=== PATIENT | female | born 1950 | race Caucasian/White ===

== ENCOUNTER 2020-10-24 17:44 | Inpatient (IN) ==
--- NOTE | 2020-10-24 18:16 | Emergency Department Note ---
SOB HPI General Chief Complaint: Shortness of Breath/Dyspnea Stated Complaint: SOB Time Seen by Provider: 10/24/20 18:02 Source: patient Mode of arrival: ambulatory Limitations: no limitations History of Present Illness HPI Narrative: 70 yo female presents with c/o shortness of breath since march of this year. associated with cough, no fever/chills, no chest pain. no n/v/d. no headache or bodyaches. nonsmoker, no hx heart or lung disease. has hypertension and hyperlipidemia. Has not been vaccinated against COVID 19. Cough was worse today. Patient arrived by private vehicle on arrival oxygen saturation was 72% on room air. Related Data Home Medications Medication Instructions Recorded Confirmed [id number] 1 - 2 tab PO Q6-8HP PRN 04/06/15 10/24/20 [Esgic 50-325-40 mg Tablet] lorazepam 0.5 mg PO BIDP PRN 04/06/15 10/24/20 clonidine HCl 0.1 mg PO QAM 10/24/20 10/24/20 clonidine HCl 0.1 mg PO QDAY 10/24/20 10/24/20 lisinopril 20 mg PO QAM 10/24/20 10/24/20 losartan 50 mg PO QAM 10/24/20 10/24/20 methocarbamol 750 mg PO QDAY PRN 10/24/20 10/24/20 omeprazole 20 mg PO QAM 10/24/20 10/24/20 simvastatin 20 mg PO HS 10/24/20 10/24/20 zolpidem 10 mg PO QDAY 10/24/20 10/24/20 Previous Rx's Medication Instructions Recorded hydrocodone-acetaminophen 1 - 2 tab PO Q4HP PRN #90 tablet 05/25/15 Allergies Allergy/AdvReac Type Severity Reaction Status Date / Time morphine Allergy Mild Vomiting Verified 04/06/15 15:11 Review of Systems ROS ROS Narrative: Narrative: All systems ED: reviewed and negative except as stated. Constitutional: Denies fever, chills and sweats Eyes: Denies vision change ENT ED: Denies throat pain and congestion Cardiovascular: Denies chest pain Respiratory: Reports shortness of breath and cough Gastrointestinal: Denies abdominal pain, vomiting and diarrhea Musculoskeletal: Denies back pain and joint pain Integumentary: Denies rash Neurological: Denies headache and dizziness Psychiatric: Denies anxiety, suicidal thoughts and homicidal thoughts Endocrine: Denies polydipsia and polyuria Hematological/Lymphatic: Denies easy bleeding and easy bruising PFS Narrative Patient History Narrative: hypertension, hyperlipidemia Medical/Surgical/Family History All Active Problems (Updated 10/24/20 @ 20:14 by Faisal Ennis MD) Pneumonia due to 2019-nCoV (Acute) Hypoxemia (Acute) Social History Smoking Status: Never smoker Exam Narrative Narrative: Narrative: General Limitations: no limitations General appearance: Present alert and other (obese, tachypneic) Head Head: Present atraumatic and normocephalic Eye Eye: Present PERRL and EOMI ENT ENT: Present normal oropharynx Neck Neck: Absent meningismus and lymphadenopathy Respiratory Respiratory: Present respiratory distress (Tachypneic) and decreased breath sounds Cardiovascular Cardiovascular: Present regular rate and normal rhythm Adbominal Abdominal: Present soft; Absent distention, tenderness, guarding and rebound Extremities Extremities: Present full ROM and normal capillary refill; Absent tenderness Back Back: Absent tenderness Neurological Neurological: Present alert, oriented X3 and CN II-XII intact; Absent motor sensory deficit Psychiatric Psychiatric: Present normal affect and normal mood; Absent homicidal ideation and suicidal ideation Skin Skin: Present warm (WNL) and dry; Absent rash Course Consultations Consultation #1: Case discussed with hospitalist, Dr. Morales states as the patient is requiring high flow 10 L oxygen oxy mask he does not have a critical care bed available and recommends transfer to an outside facility that has available critical care beds. Time: 21:20 Consultation #2: Case discussed with hospitalist Dr. Morales who agrees to admit patient who is now on 3.5 L nasal cannula. Time: 05:08 Vital Signs Vital signs: Vital Signs Temperature 98.9 F 10/24/20 17:45 Pulse Rate 97 H 10/24/20 17:45 Respiratory Rate 21 10/24/20 17:45 Blood Pressure 161/65 10/24/20 17:45 Pulse Oximetry (%) 72 L 10/24/20 17:45 Temperature 98.9 F 10/24/20 17:45 Pulse Rate 73 10/25/20 05:01 Respiratory Rate 19 10/25/20 05:01 Blood Pressure 139/63 10/25/20 05:01 Pulse Oximetry (%) 93 10/25/20 05:01 MDM MDM Narrative Medical decision making narrative: 70-year-old female presents with chief complaint of shortness of breath she states since March of this year but it's been worse recently with coughing. Patient has bilateral infiltrates on chest x-ray oxygen saturation was in the 70s on room air. on arrival Improved on supplemental oxygen. COVID-19 swab is positive. Patient is normal CBC CMP notable for BUN 29 creatinine 1.3 glucose 111. Troponin and proBNP negative. Patient has been requiring 10 L of oxygen here since arrival and case discussed with hospitalist Dr. Morales who states he does not have a critical care bed available and recommends transferring to outside facility unless he patient can be titrated to a lower level of oxygen. Differential Diagnosis Differential Diagnosis: chf, anemia, covid 19, pneumonia, pulm embolus Lab Data Result diagrams: 10/24/20 18:19 10/24/20 18:19 Labs: Lab Results 10/24/20 10/24/20 10/24/20 Range/Units 18:19 18:19 18:19 WBC 4.2 L (4.5-11.0) K/mcL RBC 3.90 (3.59-5.38) M/mcL Hgb 12.0 (11.2-15.7) g/dL Hct 36.8 (34.1-44.9) % MCV 94.4 (80.0-100.0) fL MCH 30.8 (26.0-34.0) pg MCHC 32.6 (31.0-36.0) g/dL RDW 14.2 (11.5-14.5) % Plt Count 166 (140-440) K/mcL MPV 11.0 H (7.4-10.4) fL Seg Neutrophils % 76 (38-78) % Band Neutrophils % 13 H (0-10) % Lymphocytes % 3 L (15-49) % Monocytes % (Manual) 8 (1-12) % Platelet Estimate Normal (Normal) RBC Morphology Normal (Normal) PT 13.8 (11.9-14.5) sec INR 1.0 (0.9-1.1) APTT 32.4 (20.0-37.0) sec Sodium 133 (133-145) mmol/L Potassium 4.5 (3.3-5.1) mmol/L Chloride 93 L (96-108) mmol/L Carbon Dioxide 22 (22-30) mmol/L Anion Gap 18.0 H (8.0-16.0) BUN 29 H (8-23) mg/dL Creatinine 1.3 H (0.6-1.1) mg/dL GFR Calculation 42 Glucose 111 H (70-105) mg/dL Calcium 8.6 (8.6-10.4) mg/dL Total Bilirubin 0.4 (0.1-1.0) mg/dL AST 99 H (<32) U/L ALT 46 H (<40) U/L Alkaline Phosphatase 85 (39-117) U/L Troponin T (<0.03) ng/mL NT-Pro-B Natriuret Pep 117.8 (<125.0) pg/mL Total Protein 7.0 (5.9-8.4) gm/dL Albumin 3.7 (3.2-5.2) gm/dL Globulin 3.3 (2.2-3.7) gm/dL Albumin/Globulin Ratio 1.1 (1.0-2.3) // Range/Units 18:19 WBC (4.5-11.0) K/mcL RBC (3.59-5.38) M/mcL Hgb (11.2-15.7) g/dL Hct (34.1-44.9) % MCV (80.0-100.0) fL MCH (26.0-34.0) pg MCHC (31.0-36.0) g/dL RDW (11.5-14.5) % Plt Count (140-440) K/mcL MPV (7.4-10.4) fL Seg Neutrophils % (38-78) % Band Neutrophils % (0-10) % Lymphocytes % (15-49) % Monocytes % (Manual) (1-12) % Platelet Estimate (Normal) RBC Morphology (Normal) PT (11.9-14.5) sec INR (0.9-1.1) APTT (20.0-37.0) sec Sodium (133-145) mmol/L Potassium (3.3-5.1) mmol/L Chloride (96-108) mmol/L Carbon Dioxide (22-30) mmol/L Anion Gap (8.0-16.0) BUN (8-23) mg/dL Creatinine (0.6-1.1) mg/dL GFR Calculation Glucose (70-105) mg/dL Calcium (8.6-10.4) mg/dL Total Bilirubin (0.1-1.0) mg/dL AST (<32) U/L ALT (<40) U/L Alkaline Phosphatase (39-117) U/L Troponin T < 0.01 (<0.03) ng/mL NT-Pro-B Natriuret Pep (<125.0) pg/mL Total Protein (5.9-8.4) gm/dL Albumin (3.2-5.2) gm/dL Globulin (2.2-3.7) gm/dL Albumin/Globulin Ratio (1.0-2.3) ED POC Tests ED POC Tests: TOMEKA - SARS Antigen Positive EKG Data EKG #1: EKG attestation: Yes I reviewed and interpreted this EKG. and Yes There are no EKG findings of acute coronary syndrome EKG results narrative: performed 1810 nsr, rate 95, normal axis, no ectopy, normal ST segments. Discharge Plan Patient/Caregiver Discharge Instructions Pt seen by MACHINE ATTENDANT/PA only: No Clinical Impression: Pneumonia due to 2019-nCoV, Hypoxemia Patient Disposition: Xfer As Inpt ([facility]) Condition: Serious Follow up with: Negra Cabrera ARNP [Primary Care Provider] - Prescriptions: No Action [id number]-[id number]-[id number] [Esgic] 1 EACH tablet 1 - 2 tab PO Q6-8HP PRN (Reason: Migraine Headache) RF: 0 lorazepam 0.5 MG tablet 0.5 mg PO BIDP PRN (Reason: Anxiety) RF: 0 hydrocodone-acetaminophen 1 TAB tablet 1 - 2 tab PO Q4HP PRN (Reason: Pain) Qty: 90 RF: 0 clonidine HCl 0.1 mg tablet 0.1 mg PO QAM RF: 0 clonidine HCl 0.1 mg tablet 0.1 mg PO QDAY RF: 0 lisinopril 20 mg tablet 20 mg PO QAM RF: 0 losartan 50 mg tablet 50 mg PO QAM RF: 0 methocarbamol 750 mg tablet 750 mg PO QDAY PRN (Reason: Pain) RF: 0 omeprazole 20 mg capsule,delayed release(DR/EC) 20 mg PO QAM RF: 0 simvastatin 20 mg tablet 20 mg PO HS RF: 0 zolpidem 10 mg tablet 10 mg PO QDAY RF: 0
[2020-10-24 19:12] LABS: Hematocrit 36.8 % (34.1-44.9); Mean Cell Volume 94.4 fL (80.0-100.0); Mean Corpuscular HGB Conc 32.6 g/dL (31.0-36.0); Platelet Count 166 K/mcL (140-440); Red Cell Distribution Width 14.2 % (11.5-14.5); WBC 4.2 K/mcL (4.5-11.0)
[2020-10-24 19:30] LABS: Partial Thromboplastin Time 32.4 sec (20.0-37.0); Prothrombin Time 13.8 sec (11.9-14.5)
[2020-10-24 19:48] LABS: Band Neutrophils % 13 % (0-10); Lymphocytes % 3 % (15-49); Monocytes % (Manual) 8 % (1-12); Platelet Estimate NORMAL (Normal); RBC Morphology NORMAL (Normal); Segmented Neutrophils % 76 % (38-78)
[2020-10-24 19:55] LABS: proBNP 117.8 pg/mL (<125.0)
[2020-10-24 19:56] LABS: ALT/SGPT 46 U/L (<40); AST/SGOT 99 U/L (<32); Albumin 3.7 gm/dL (3.2-5.2); Albumin/Globulin Ratio 1.1 (1.0-2.3); Alkaline Phosphatase 85 U/L (39-117); Bilirubin,Total 0.4 mg/dL (0.1-1.0); Blood Urea Nitrogen 29 mg/dL (8-23); Calcium 8.6 mg/dL (8.6-10.4); Carbon Dioxide 22 mmol/L (22-30); Chloride 93 mmol/L (96-108); Globulin 3.3 gm/dL (2.2-3.7); Glomerular Filtration Rate 42; Glucose 111 mg/dL (70-105)
--- NOTE | 2020-10-24 20:20 | XRay Report ---
HISTORY: Dyspnea FINDINGS: There are moderate bilateral alveolar infiltrates predominantly involving the lower lobes, left worse than right. There is also involvement extending to the upper dangelo. Right diaphragm is moderately elevated. No pleural effusion is present. The heart size is normal. No prior study is available for comparison. IMPRESSION: Moderate bilateral pneumonia Interpreted and Authenticated by: Migel Henderson 10/24/20
[2020-10-24] MEDS ORDERED: DEXAMETHASONE 10 MG/ML VIAL IV ONE (22:00)
[2020-10-25] MEDS ORDERED: REMDESIVIR 200 MG in 0.9 % SODIUM CHLORIDE 250 ML IV ONE (01:39)
--- NOTE | 2020-10-25 08:20 | Emergency Department Note ---
ED Note Addendum Note Addendum: I was asked to assess the patient at 820 in the morning as she had significant oxygen desaturation after going to the bathroom. I evaluated her in person. She is sitting upright in bed in no respiratory distress with a simple mask on. Her oxygen saturation is 85 to 88% and she is able to speak in full sentences without difficulty. I explained to staff that the sats are generally acceptable for patient being treated for Covid but I did recommend they attempt rolling the patient on her side or even assisting her in proning. They will contact the hospitalist for further recommendations.
[2020-10-25] MEDS ORDERED: LORazepam 0.5 MG TABLET PO PRN (10:21)
[2020-10-25] MEDS ORDERED: METHOCARBAMOL 750 MG TABLET PO PRN (10:21)
[2020-10-25] MEDS ORDERED: BUTALB/ACETAMINOPHEN/CAFFEINE 1 TABLET PO PRN (10:21)
--- NOTE | 2020-10-25 10:21 | Internal Med History&Physical ---
HPI History of Present Illness Patient information: Note initiated : 10/25/20 at 10:09 am Service Date, if different from initiated Date: [] Patient: Tammy Blevins a 70 y/o F admitted on for Shortness of breath. Chief Complaint: [] History of present illness: Ms. Blevins is a 70 year old F Patient presents the ED with vague complaints of just feeling ill. She has a chronic cough since March and was told it is probably allergies but has not improved. The cough has not changed. She is also chronically short of breath but she says her shortness of breath has not changed either. The only that change recently that a week ago she started feeling ill and ill and think she could tell me after asking multiple questions was made that she just kind of weak and tired fatigued but no specifics. When you see her primary care provider. She came in last night because she just has not felt any better. Patient not vaccinated. In the ED on arrival she was low 70s oxygen. Chest x-ray with bilateral infiltrates. She had a leukopenia but a mild bandemia and low lymphocytes. She was originally put on 10 L oxygen mask but was able to be titrated down to 3.5 and maintained in the ED. Creatinine is 1.3 but do not know baseline. Mild transaminitis. INR was normal Review of Systems: Pertinent positives as above. Denies headache/fever/chills/nausea/vomiting/chest or abdominal pain/diarrhea. Remaining 10 point review of system reviewed negative PFSH PFSH All Active Problems (Updated 10/24/20 @ 20:14 by Faisal Ennis MD) Pneumonia due to 2019-nCoV (Acute) Hypoxemia (Acute) MEDS/ALLERGIES Home Medications and Allergies Home Medications Medication Instructions Recorded Confirmed Type [id number]-sizsfbujdzwze-cfpc 1 - 2 tab PO Q6-8HP PRN 04/06/15 10/24/20 History [Esgic 50-325-40 mg Tablet] lorazepam 0.5 mg PO BIDP PRN 04/06/15 10/24/20 History hydrocodone-acetaminophen 1 - 2 tab PO Q4HP PRN #90 tablet 05/25/15 10/24/20 Rx clonidine HCl 0.1 mg PO QAM 10/24/20 10/24/20 History clonidine HCl 0.1 mg PO QDAY 10/24/20 10/24/20 History lisinopril 20 mg PO QAM 10/24/20 10/24/20 History losartan 50 mg PO QAM 10/24/20 10/24/20 History methocarbamol 750 mg PO QDAY PRN 10/24/20 10/24/20 History omeprazole 20 mg PO QAM 10/24/20 10/24/20 History simvastatin 20 mg PO HS 10/24/20 10/24/20 History zolpidem 10 mg PO QDAY 10/24/20 10/24/20 History Allergies Allergy/AdvReac Type Severity Reaction Status Date / Time morphine Allergy Mild Vomiting Verified 04/06/15 15:11 EXAM Constitutional Vitals: Temp Pulse Resp BP Pulse Ox 98.9 F 78 23 H 132/64 93 10/24/20 17:45 10/25/20 09:01 10/25/20 09:01 10/25/20 09:01 10/25/20 09:01 Exam: General: Alert, Awake, No acute Distress, obese Eyes/N/T: EOMI, PERRL, Head/Neck: neck supple, normocephalic atraumatic CV: RRR, No murmurs, normal s1/s2 Pulm: Mild rhonchi/rales b/l, no wheezing Abd: soft, nontender, +BS x4 Ext: no clubbing/cyanosis/edema Neuro: Alert, no focal deficits, moves all extremities, CN 2-12 grossly intact, symmetrical strength b/l upper/lower, sensations intact b/l upper/lower Skin: warm/dry DATA Data Completed and Pending Labs: Labs from last 24 hours 10/24/20 10/24/20 10/24/20 18:19 18:19 18:19 WBC RBC Hgb Hct MCV MCH MCHC RDW Plt Count MPV Seg Neutrophils % Band Neutrophils % Lymphocytes % Monocytes % (Manual) Platelet Estimate RBC Morphology PT 13.8 INR 1.0 APTT 32.4 Sodium 133 Potassium 4.5 Chloride 93 L Carbon Dioxide 22 Anion Gap 18.0 H BUN 29 H Creatinine 1.3 H GFR Calculation 42 Glucose 111 H Calcium 8.6 Total Bilirubin 0.4 AST 99 H ALT 46 H Alkaline Phosphatase 85 Troponin T < 0.01 NT-Pro-B Natriuret Pep 117.8 Total Protein 7.0 Albumin 3.7 Globulin 3.3 Albumin/Globulin Ratio 1.1 10/24/20 18:19 WBC 4.2 L RBC 3.90 Hgb 12.0 Hct 36.8 MCV 94.4 MCH 30.8 MCHC 32.6 RDW 14.2 Plt Count 166 MPV 11.0 H Seg Neutrophils % 76 Band Neutrophils % 13 H Lymphocytes % 3 L Monocytes % (Manual) 8 Platelet Estimate Normal RBC Morphology Normal PT INR APTT Sodium Potassium Chloride Carbon Dioxide Anion Gap BUN Creatinine GFR Calculation Glucose Calcium Total Bilirubin AST ALT Alkaline Phosphatase Troponin T NT-Pro-B Natriuret Pep Total Protein Albumin Globulin Albumin/Globulin Ratio A/P Narrative A/P Narrative: A: *Covid pneumonia w/ : *Acute hypoxic respiratory failure: *?RENATE on CKD III: cr 1.3, unknown baseline, if acute likely from hypoxia *HTN/HLD: On ACEI/ARB/clonidine *Migraines: *Obesity: *Anxiety: Situational, at work *Chronic cough/dyspnea: *GERD: * P: -Remdesivir/dexamethasone -O2 support and wean as able -Check ABG -Proning and mobilization daily -IS/Acapella, prn IH's, RT -Check CRP/PCT/rvp -clarify home meds -consider d/c ACEI/ARB given chronic cough - -ppx: Lovenox bid/home PPI DNR Time Spent With Patient Time: Total time spent is greater than 50% in coordination of care (as documented) at patient's floor/unit and/or counseling patient:
[2020-10-25] MEDS ORDERED: PROCHLORPERAZINE 10 MG/2 ML VIAL IV PRN (10:22)
[2020-10-25] MEDS ORDERED: ACETAMINOPHEN 325 MG TABLET PO PRN (10:22)
[2020-10-25] MEDS ORDERED: POTASSIUM CHLORIDE 40 MEQ in DEXTROSE 5% IN WATER 500 ML IV PRN (10:22)
[2020-10-25] MEDS ORDERED: ONDANSETRON 4 MG/2 ML VIAL IV PRN (10:22)
[2020-10-25] MEDS ORDERED: POTASSIUM CHLORIDE 20 MEQ TABLET PO PRN ×2 (10:22)
[2020-10-25] MEDS ORDERED: POLYETHYLENE GLYCOL 3350 17 GM PACKET PO PRN (10:22)
[2020-10-25] MEDS ORDERED: MAGNESIUM SULFATE 2 GM/50 ML BAG IV PRN (10:22)
[2020-10-25] MEDS ORDERED: IPRATROPIUM/ALBUTEROL 3 ML AMPUL.NEB NEB PRN (10:22)
[2020-10-25] MEDS ORDERED: SENNOSIDES 1 TABLET PO PRN (10:22)
[2020-10-25 11:46] LABS: Hematocrit 37.6 % (34.1-44.9); Hemoglobin 12.5 g/dL (11.2-15.7); Mean Cell Volume 94.9 fL (80.0-100.0); Mean Corpuscular HGB Conc 33.2 g/dL (31.0-36.0); Mean Platelet Volume 11.2 fL (7.4-10.4); Platelet Count 176 K/mcL (140-440); RBC 3.96 M/mcL (3.59-5.38); Red Cell Distribution Width 14.3 % (11.5-14.5); WBC 4.3 K/mcL (4.5-11.0)
[2020-10-25 11:58] LABS: ALT/SGPT 51 U/L (<40); AST/SGOT 93 U/L (<32); Albumin 3.8 gm/dL (3.2-5.2); Albumin/Globulin Ratio 1.2 (1.0-2.3); Alkaline Phosphatase 91 U/L (39-117); Bilirubin,Direct < 0.2 mg/dL (0-0.3); Bilirubin,Total 0.3 mg/dL (0.1-1.0); Blood Urea Nitrogen 32 mg/dL (8-23); Calcium 8.9 mg/dL (8.6-10.4); Carbon Dioxide 26 mmol/L (22-30); Chloride 96 mmol/L (96-108); Globulin 3.2 gm/dL (2.2-3.7); Glomerular Filtration Rate 42; Glucose 122 mg/dL (70-105); Lactate Dehydrogenase 621 U/L (135-225); Phosphorous 3.2 mg/dL (2.5-4.5); Triglycerides 119 mg/dL (<150); Uric Acid 9.1 mg/dL (2.5-8.0)
[2020-10-25 12:14] LABS: Band Neutrophils % 7 % (0-10); Lymphocytes % 7 % (15-49); Monocytes % (Manual) 5 % (1-12); Platelet Estimate NORMAL (Normal); RBC Morphology NORMAL (Normal); Segmented Neutrophils % 81 % (38-78)
[2020-10-25] MEDS ORDERED: PNEUMOCOCCAL 23-VAL P-SAC VAC 0.5 ML SYRINGE IM ONE (12:45)
[2020-10-25] MEDS: 0.9 % SODIUM CHLORIDE 10 ML SYRINGE IV SCH ×2 (13:59→20:36)
[2020-10-25] MEDS ORDERED: cloNIDine HCL 0.1 MG TABLET PO PRN ×2 (14:56→14:57)
[2020-10-25] MEDS: IPRATROPIUM/ALBUTEROL SULFATE 1 PUFF INHALER INH SCH ×2 (17:24→20:35)
[2020-10-25] MEDS: HYDROcodone/APAP 10/325MG TABLET PO PRN (17:25)
[2020-10-25] MEDS: DOCUSATE SODIUM 100 MG CAPSULE PO SCH (20:25)
[2020-10-25] MEDS: ENOXAPARIN 40 MG/0.4 ML SYRINGE SQ SCH (20:35)
[2020-10-25] MEDS ORDERED: SIMVASTATIN 20 MG TABLET PO SCH (21:00)
[2020-10-25] MEDS ORDERED: ZOLPIDEM 5 MG TABLET PO PRN (21:00)
[2020-10-26] MEDS: HYDROcodone/APAP 10/325MG TABLET PO PRN ×2 (01:51→19:36)
[2020-10-26] MEDS: 0.9 % SODIUM CHLORIDE 10 ML SYRINGE IV SCH ×3 (05:43→20:07)
[2020-10-26 07:28] LABS: Hematocrit 39.4 % (34.1-44.9); Hemoglobin 11.9 g/dL (11.2-15.7); Mean Cell Volume 101.3 fL (80.0-100.0); Mean Corpuscular HGB Conc 30.2 g/dL (31.0-36.0); Mean Platelet Volume 11.1 fL (7.4-10.4); Platelet Count 191 K/mcL (140-440); RBC 3.89 M/mcL (3.59-5.38); Red Cell Distribution Width 14.5 % (11.5-14.5); WBC 6.1 K/mcL (4.5-11.0)
[2020-10-26] MEDS: DOCUSATE SODIUM 100 MG CAPSULE PO SCH ×2 (08:09→20:07)
--- NOTE | 2020-10-26 08:14 | Internal Med Progress Note ---
SUBJECTIVE Subjective Patient information: Note initiated : 10/26/20 at 8:12 am Service Date, if different from initiated Date: [] Patient: Tammy Blevins 70 y/o F admitted on 10/25/20 for Shortness of breath. Chief Complaint: [] Interval history: History of present illness: Ms. Blevins is a 70 year old F Patient presents the ED with vague complaints of just feeling ill. She has a chronic cough since March and was told it is probably allergies but has not improved. The cough has not changed. She is also chronically short of breath but she says her shortness of breath has not changed either. The only that change recently that a week ago she started feeling ill and ill and think she could tell me after asking multiple questions was made that she just kind of weak and tired fatigued but no specifics. When you see her primary care provider. She came in last night because she just has not felt any better. Patient not vaccinated. In the ED on arrival she was low 70s oxygen. Chest x-ray with bilateral infiltrates. She had a leukopenia but a mild bandemia and low lymphocytes. She was originally put on 10 L oxygen mask but was able to be titrated down to 3.5 and maintained in the ED. Creatinine is 1.3 but do not know baseline. Mild transaminitis. INR was normal pt was on lisinopril but this was stopped because of chronic cough and she was switched to Losartan. Pt with diarrhea multiple episodes in ED. c. diff pending. 10/26 Patient C. difficile positive. States she does not feel any better than yesterday. Is on Vapotherm. Has cough and shortness of breath. And diarrhea. Review of Systems: denies headache/fever/chills/nausea/vomiting/chest or abdominal pain. Otherwise see above. Constitutional Vitals: Vital Signs Temp Pulse Resp BP Pulse Ox 98.4 F 78 25 H 128/69 95 10/26/20 04:02 10/26/20 04:02 10/26/20 04:02 10/26/20 04:02 10/26/20 04:02 Period Temp Pulse Resp BP Sys/Wilcox Pulse Ox Last 24 Hr 97.1 F-101.9 F 75-96 14-27 126-174/41-103 69-97 Intake and Output 10/25/20 10/26/2010/26/21 21:59 05:59 13:59 Intake Total 100 120 Output Total 151 450 Balance -51 -330 Weight 125.418 kg Intake & Output: Intake & Output 10/25/20 10/26/20 10/26/20 21:59 05:59 13:59 Intake Total 100 120 Output Total 151 450 Balance -51 -330 Weight 125.418 kg Intake: Oral 100 120 Output: Urine Catheter Amount 450 # of times incontinent of urine 1 Urine/Stool Mix 150 Other: Urine Appearance Clear Uretheral (Beasley) Clear Urine Color Bright Yellow Uretheral (Beasley) Bright Yellow Stool Size Moderate Stool Color Brown Stool Consistency Liquid Exam: General: Alert, Awake, No acute Distress, obese Eyes/N/T: EOMI, Head/Neck: neck supple, CV: RRR, No murmurs, Pulm: Mild rhonchi/rales b/l, no wheezing Abd: soft, nontender, +BS x4 Ext: no clubbing/cyanosis/edema Neuro: Alert, no focal deficits, moves all extremities, Skin: warm/dry OBJ DATA Labs CBC & Chem 7: 10/26/20 05:19 10/26/20 05:20 Labs: Abnormal Lab Results 10/26/20 10/26/20 10/25/20 05:20 05:19 10:45 WBC MCV 101.3 H MCHC 30.2 L MPV 11.1 H Seg Neutrophils % Band Neutrophils % Lymphocytes % Chloride Anion Gap BUN Creatinine Glucose Uric Acid GGT AST ALT Lactate Dehydrogenase C-Reactive Protein 8.90 H Procalcitonin 0.32 H 10/25/20 10/25/20 10/24/20 10:45 10:45 18:19 WBC 4.3 L MCV MCHC MPV 11.2 H Seg Neutrophils % 81 H Band Neutrophils % Lymphocytes % 7 L Chloride 93 L Anion Gap 18.0 H BUN 32 H 29 H Creatinine 1.3 H 1.3 H Glucose 122 H 111 H Uric Acid 9.1 H GGT 220 H AST 93 H 99 H ALT 51 H 46 H Lactate Dehydrogenase 621 H C-Reactive Protein 10.60 H Procalcitonin 10/24/20 18:19 WBC 4.2 L MCV MCHC MPV 11.0 H Seg Neutrophils % Band Neutrophils % 13 H Lymphocytes % 3 L Chloride Anion Gap BUN Creatinine Glucose Uric Acid GGT AST ALT Lactate Dehydrogenase C-Reactive Protein Procalcitonin Meds: Medications Acetaminophen (Acetaminophen 325 Mg Tablet) 650 mg PO Q6HP PRN PRN Reason: PAIN/FEVER > 101 Last Admin: 10/26/20 01:52 Dose: 650 mg Documented by: Acetaminophen/Butalbital/Caffeine (Butalb/Acetaminophen/Caffeine 1 Tablet) 1 - 2 tab PO Q6-8HP PRN PRN Reason: Migraine Headache Hydrocodone Bitart/Acetaminophen (Hydrocodone/Apap 10/325mg Tablet) 1 - 2 tab PO Q4HP PRN; Protocol PRN Reason: Pain Last Admin: 10/26/20 01:51 Dose: 1 tab Documented by: Albuterol/Ipratropium (Ipratropium/Albuterol 3 Ml Ampul.Neb) 3 ml NEB Q4HP PRN PRN Reason: Shortness Of Breath Albuterol/Ipratropium (Ipratropium/Albuterol Sulfate 1 Puff Inhaler) 2 puff INH TID [facility] Last Admin: 10/25/20 20:35 Dose: 2 puff Documented by: Clonidine HCl (Clonidine Hcl 0.1 Mg Tablet) 0.1 mg PO Q8HP PRN PRN Reason: Hypertension or headache Last Admin: 10/25/20 22:16 Dose: 0.1 mg Documented by: Dexamethasone (Dexamethasone 4 Mg Tablet) 6 mg PO DAILY [facility] Docusate Sodium (Docusate Sodium 100 Mg Capsule) 100 mg PO BID [facility] Last Admin: 10/26/20 08:09 Dose: Not Given Documented by: Enoxaparin Sodium (Enoxaparin 40 Mg/0.4 Ml Syringe) 40 mg SQ BID [facility] Last Admin: 10/25/20 20:35 Dose: 40 mg Documented by: Potassium Chloride 40 meq/ (Dextrose) 520 mls @ 130 mls/hr IV UD PRN PRN Reason: Potassium < 3 Magnesium Sulfate (Magnesium Sulfate) 2 gm in 50 mls @ 50 mls/hr IV UD PRN PRN Reason: Magnesium </= 1.6 REMDESIVIR 100 mg/ Sodium (Chloride) 250 mls @ 500 mls/hr IV Q24H [facility] Stop: 10/29/20 09:29 Lorazepam (Lorazepam 0.5 Mg Tablet) 0.5 mg PO BIDP PRN PRN Reason: Anxiety Last Admin: 10/26/20 01:51 Dose: 0.5 mg Documented by: Losartan Potassium (Losartan 50 Mg Tablet) 50 mg PO QAM [facility] Methocarbamol (Methocarbamol 750 Mg Tablet) 750 mg PO QDAY PRN PRN Reason: Pain Montelukast Sodium (Montelukast 10 Mg Tablet) 10 mg PO QDAY [facility] Omeprazole (Omeprazole 20 Mg Capsule) 20 mg PO QAM [facility] Ondansetron HCl (Ondansetron 4 Mg/2 Ml Vial) 4 mg IV Q4HP PRN PRN Reason: Nausea And Vomiting Polyethylene Glycol (Polyethylene Glycol 3350 17 Gm Packet) 17 gm PO DAILYP PRN PRN Reason: Constipation Potassium Chloride (Potassium Chloride 20 Meq Tablet) 40 meq PO UD PRN PRN Reason: Potssium is 3-3.5 Potassium Chloride (Potassium Chloride 20 Meq Tablet) 40 meq PO UD PRN PRN Reason: Potassium < 3 Prochlorperazine (Prochlorperazine 10 Mg/2 Ml Vial) 10 mg IV Q6HP PRN PRN Reason: Nausea And Vomiting Senna (Sennosides 1 Tablet) 2 tab PO DAILYP PRN PRN Reason: Constipation Simvastatin (Simvastatin 20 Mg Tablet) 20 mg PO HS [facility] Last Admin: 10/25/20 20:35 Dose: 20 mg Documented by: Sodium Chloride (0.9 % Sodium Chloride 10 Ml Syringe) 10 ml IV Q8 [facility] Last Admin: 10/26/20 05:43 Dose: 10 ml Documented by: Zolpidem Tartrate (Zolpidem 5 Mg Tablet) 5 - 10 mg PO HSP PRN PRN Reason: Insomnia Last Admin: 10/25/20 20:48 Dose: 5 mg Documented by: A/P Narrative A/P Narrative: A: *Covid pneumonia w/ARDS, : -febrile last night *Acute hypoxic respiratory failure: -on vapotherm *C. Diff colitis on admit: *?RENATE on CKD III: cr 1.3, unknown baseline, if acute likely from hypoxia *HTN/HLD: recently switched from Lisinopril to losartan for chronic cough *Migraines: is on prn clonidine & fioricet *Obesity: *Anxiety: Situational, at work *Chronic cough/dyspnea: recently switched from Lisinopril to losartan for chronic cough & started ppi *GERD: P: -Remdesivir/dexamethasone -O2 support and wean as able -Proning and mobilization daily, OOB to chair -IS/Acapella, prn IH's, RT -Vanco PO -cont ARB -restart aldactone - -ppx: Lovenox bid/home PPI DNR Time Spent With Patient Time: Total time spent is greater than 50% in coordination of care (as documented) at patient's floor/unit and/or counseling patient:
[2020-10-26] MEDS: ENOXAPARIN 40 MG/0.4 ML SYRINGE SQ SCH ×2 (08:18→20:06)
[2020-10-26 08:38] LABS: ALT/SGPT 44 U/L (<40); AST/SGOT 74 U/L (<32); Albumin 3.1 gm/dL (3.2-5.2); Albumin/Globulin Ratio 0.9 (1.0-2.3); Alkaline Phosphatase 78 U/L (39-117); Bilirubin,Direct < 0.2 mg/dL (0-0.3); Bilirubin,Total 0.3 mg/dL (0.1-1.0); Blood Urea Nitrogen 40 mg/dL (8-23); Calcium 8.9 mg/dL (8.6-10.4); Carbon Dioxide 18 mmol/L (22-30); Chloride 99 mmol/L (96-108); Globulin 3.3 gm/dL (2.2-3.7); Glomerular Filtration Rate 42; Glucose 103 mg/dL (70-105); Lactate Dehydrogenase 723 U/L (135-225); Phosphorous 2.9 mg/dL (2.5-4.5); Triglycerides 99 mg/dL (<150); Uric Acid 9.1 mg/dL (2.5-8.0)
[2020-10-26] MEDS ORDERED: LOSARTAN 50 MG TABLET PO SCH (09:00)
[2020-10-26] MEDS ORDERED: DEXAMETHASONE 4 MG TABLET PO SCH (09:00)
[2020-10-26] MEDS ORDERED: MONTELUKAST 10 MG TABLET PO SCH (09:00)
[2020-10-26] MEDS ORDERED: cloNIDine HCL 0.1 MG TABLET PO SCH ×2 (09:00)
[2020-10-26] MEDS ORDERED: OMEPRAZOLE 20 MG CAPSULE PO SCH (09:00)
[2020-10-26] MEDS ORDERED: REMDESIVIR 100 MG in 0.9 % SODIUM CHLORIDE 250 ML IV SCH (09:00)
--- NOTE | 2020-10-26 09:45 | XRay Report ---
CLINICAL INFORMATION: worsening hypoxia COMPARISON: 10/24/2020 FINDINGS: Heart size, mediastinum and pulmonary vessels are normal. Moderate patchy infiltrates in both mid and lower lungs worsened modestly from previous exam. No definite effusion IMPRESSION: Moderate patchy bilateral mid and lower lung infiltrates worsening modestly since chest x-ray two days ago Interpreted and Authenticated by: Andrew Bullock 10/26/20
[2020-10-26] MEDS ORDERED: SPIRONOLACTONE 25 MG TABLET PO SCH (10:55)
[2020-10-26 10:56] LABS: Band Neutrophils % 6 % (0-10); Lymphocytes % 3 % (15-49); Monocytes % (Manual) 3 % (1-12); Platelet Estimate NORMAL (Normal); RBC Morphology NORMAL (Normal); Segmented Neutrophils % 88 % (38-78)
[2020-10-26] MEDS: IPRATROPIUM/ALBUTEROL SULFATE 1 PUFF INHALER INH SCH ×3 (11:57→20:10)
[2020-10-26] MEDS ORDERED: VANCOMYCIN ORAL SOL 1,000 MG/10 ML BOTTLE PO SCH (12:00)
[2020-10-26] MEDS ORDERED: cloNIDine HCL 0.1 MG TABLET PO PRN (12:01)
[2020-10-26] MEDS ORDERED: MAGNESIUM SULFATE 2 GM/50 ML BAG IV PRN (12:01)
[2020-10-26] MEDS ORDERED: BUTALB/ACETAMINOPHEN/CAFFEINE 1 TABLET PO PRN (12:01)
[2020-10-26] MEDS ORDERED: POLYETHYLENE GLYCOL 3350 17 GM PACKET PO PRN (12:01)
[2020-10-26] MEDS ORDERED: POTASSIUM CHLORIDE 20 MEQ TABLET PO PRN ×2 (12:01)
[2020-10-26] MEDS ORDERED: ONDANSETRON 4 MG/2 ML VIAL IV PRN (12:01)
[2020-10-26] MEDS ORDERED: PROCHLORPERAZINE 10 MG/2 ML VIAL IV PRN (12:01)
[2020-10-26] MEDS ORDERED: ACETAMINOPHEN 325 MG TABLET PO PRN (12:01)
[2020-10-26] MEDS ORDERED: IPRATROPIUM/ALBUTEROL 3 ML AMPUL.NEB NEB PRN (12:01)
[2020-10-26] MEDS ORDERED: LORazepam 0.5 MG TABLET PO PRN (12:01)
[2020-10-26] MEDS ORDERED: SENNOSIDES 1 TABLET PO PRN (12:01)
[2020-10-26] MEDS ORDERED: POTASSIUM CHLORIDE 40 MEQ in DEXTROSE 5% IN WATER 500 ML IV PRN (12:01)
[2020-10-26] MEDS: guaiFENesin/DEXTROMETHORPHAN ORAL SOL PO PRN (15:49)
[2020-10-26] MEDS: METHOCARBAMOL 750 MG TABLET PO PRN (16:37)
[2020-10-26] MEDS: VANCOMYCIN ORAL SOL 1,000 MG/10 ML BOTTLE PO SCH ×2 (17:27→23:52)
[2020-10-26] MEDS: SIMVASTATIN 20 MG TABLET PO SCH (20:07)
[2020-10-26] MEDS: ZOLPIDEM 5 MG TABLET PO PRN (20:07)
[2020-10-27] MEDS: HYDROcodone/APAP 10/325MG TABLET PO PRN ×3 (01:58→20:31)
[2020-10-27] MEDS: VANCOMYCIN ORAL SOL 1,000 MG/10 ML BOTTLE PO SCH ×4 (05:44→23:40)
[2020-10-27] MEDS: 0.9 % SODIUM CHLORIDE 10 ML SYRINGE IV SCH ×3 (05:44→20:32)
[2020-10-27] MEDS: guaiFENesin/DEXTROMETHORPHAN ORAL SOL PO PRN ×2 (06:20→14:41)
[2020-10-27] MEDS: OMEPRAZOLE 20 MG CAPSULE PO SCH (06:43)
[2020-10-27 07:12] LABS: Basophils # (Auto) 0 K/mcL (0.00-0.30); Basophils % (Auto) 0 % (0.0-2.0); Eosinophils # (Auto) 0 K/mcL (0.00-0.70); Eosinophils % (Auto) 0 % (0.0-7.0); Hematocrit 35.9 % (34.1-44.9); Hemoglobin 11.7 g/dL (11.2-15.7); Lymphocytes # (Auto) 0.48 K/mcL (1.50-4.80); Lymphocytes % (Auto) 7.9 % (15.5-49.0); Mean Cell Volume 96.2 fL (80.0-100.0); Mean Corpuscular HGB Conc 32.6 g/dL (31.0-36.0); Mean Platelet Volume 11.1 fL (7.4-10.4); Monocytes # (Auto) 0.53 K/mcL (0.10-0.90); Monocytes % (Auto) 8.7 % (1.0-12.0); Neutrophils % (Auto) 83.4 % (38.0-78.0); Platelet Count 252 K/mcL (140-440); RBC 3.73 M/mcL (3.59-5.38); Red Cell Distribution Width 14.4 % (11.5-14.5); WBC 6.1 K/mcL (4.5-11.0)
[2020-10-27 07:59] LABS: ALT/SGPT 43 U/L (<40); AST/SGOT 56 U/L (<32); Albumin 3.1 gm/dL (3.2-5.2); Albumin/Globulin Ratio 0.9 (1.0-2.3); Alkaline Phosphatase 80 U/L (39-117); Bilirubin,Total 0.3 mg/dL (0.1-1.0); Blood Urea Nitrogen 42 mg/dL (8-23); Calcium 8.8 mg/dL (8.6-10.4); Carbon Dioxide 22 mmol/L (22-30); Chloride 101 mmol/L (96-108); Globulin 3.4 gm/dL (2.2-3.7); Glomerular Filtration Rate 42; Glucose 128 mg/dL (70-105)
[2020-10-27] MEDS: ENOXAPARIN 40 MG/0.4 ML SYRINGE SQ SCH ×2 (09:29→20:30)
[2020-10-27] MEDS: MONTELUKAST 10 MG TABLET PO SCH (09:29)
[2020-10-27] MEDS: REMDESIVIR 100 MG in 0.9 % SODIUM CHLORIDE 250 ML IV SCH (09:30)
[2020-10-27] MEDS: LOSARTAN 50 MG TABLET PO SCH (09:30)
[2020-10-27] MEDS: SPIRONOLACTONE 25 MG TABLET PO SCH (09:30)
[2020-10-27] MEDS: DEXAMETHASONE 4 MG TABLET PO SCH (09:30)
[2020-10-27] MEDS: IPRATROPIUM/ALBUTEROL SULFATE 1 PUFF INHALER INH SCH ×3 (09:32→20:32)
[2020-10-27] MEDS: DOCUSATE SODIUM 100 MG CAPSULE PO SCH ×2 (09:32→20:32)
[2020-10-27] MEDS: METHOCARBAMOL 750 MG TABLET PO PRN (09:50)
[2020-10-27] MEDS: LORazepam 0.5 MG TABLET PO PRN ×2 (10:42→15:44)
--- NOTE | 2020-10-27 10:53 | Internal Med Progress Note ---
SUBJECTIVE Subjective Patient information: Note initiated : 10/27/20 at 10:48 am Service Date, if different from initiated Date: [] Patient: Tammy Blevins a 70 y/o F admitted on 10/25/20 for Shortness of breath. Chief Complaint: [CoVID pneumonia] History of present illness: Ms. Blevins is a 70 year old F Patient presents the ED with vague complaints of just feeling ill. She has a chronic cough since March and was told it is probably allergies but has not improved. The cough has not changed. She is also chronically short of breath but she says her shortness of breath has not changed either. The only that change recently that a week ago she started feeling ill and ill and think she co uld tell me after asking multiple questions was made that she just kind of weak and tired fatigued but no specifics. When you see her primary care provider. She came in last night because she just has not felt any better. Patient not vaccinated. In the ED on arrival she was low 70s oxygen. Chest x-ray with bilateral infiltrates. She had a leukopenia but a mild bandemia and low lymphocytes. She was originally put on 10 L oxygen mask but was able to be titrated down to 3.5 and maintained in the ED. Creatinine is 1.3 but do not know baseline. Mild transaminitis. INR was normal pt was on lisinopril but this was stopped because of chronic cough and she was switched to Losartan. Pt with diarrhea multiple episodes in ED. c. diff pending. 10/26 Patient C. difficile positive. States she does not feel any better than yesterday. Is on Vapotherm. Has cough and shortness of breath. And diarrhea. 10/27: No diarrhea overnight. Tolerating modified proning on her side. Been on Vapotherm 60L and 95%. Afebrile overnight. c/o slightly improving SOB. c/o nonproductive cough. Denies sputum production. Denies wheezing. Denies chest pain. Denies fever or chills or sweating. Denies abdominal pain. Constitutional Vitals: Vital Signs Temp Pulse Resp BP Pulse Ox 36.0 C L 80 21 120/58 95 10/27/20 07:29 10/27/20 10:45 10/27/20 10:45 10/27/20 10:00 10/27/20 10:45 Period Temp Pulse Resp BP Sys/Wilcox Pulse Ox Last 24 Hr 35.9 C-36.3 C 69-83 17-28 105-155/45-136 86-97 Intake and Output 10/26/20 10/27/20 10/27/20 21:59 05:59 13:59 Intake Total 680 Output Total 300 225 Balance 380 -225 Weight 124.42 kg Intake & Output: Intake & Output 10/26/20 10/27/20 10/27/20 21:59 05:59 13:59 Intake Total 680 Output Total 300 225 Balance 380 -225 Weight 124.42 kg Intake: Nourishment/Supplement quantity 240 (ml) Oral 440 Output: Urine Catheter Amount 300 225 Other: Meal Dinner Percent of Meal Consumed 25% Feeding Ability Independent Nourishment/Supplement name Ensure Urine Appearance Clear Cloudy Urine Color Light Shreya Bright Yellow # Voids 1 1 General appearance: cooperative and no acute distress Exam: Prone Head Head exam: Present atraumatic and normocephalic Eye Eye exam: Present EOMI and PERRL ENT ENT exam: Present mucous membranes moist, normal exam and normal external ear exam Additional comments: Vapotherm in place Neck Neck exam: Present normal inspection; Absent lymphadenopathy, tenderness and thyromegaly Respiratory Respiratory exam: Present respiratory distress and rhonchi; Absent accessory muscle use and wheezes Cardiovascular Cardiovascular exam: Present normal rate and rhythm; Absent JVD GI/Abdominal GI/Abdominal exam: Present normal bowel sounds and soft; Absent organomegaly and tenderness Extremities Exam Extremities exam: Present full ROM, normal capillary refill and normal inspection; Absent tenderness Neurological Exam Neurological exam: Present alert, CN II-XII intact and oriented X3; Absent motor sensory deficit Psychiatric Psychiatric exam: Present normal affect and normal mood; Absent anxious and depressed Skin Skin exam: Present dry and intact OBJ DATA Labs CBC & Chem 7: 10/27/20 06:04 10/27/20 06:03 Labs: Abnormal Lab Results 10/27/20 10/27/20 10/27/20 06:04 06:04 06:03 WBC MCV MCHC MPV 11.1 H Neut % (Auto) 83.4 H Lymph % (Auto) 7.9 L Lymph # (Auto) 0.48 L Seg Neutrophils % Band Neutrophils % Lymphocytes % Chloride Carbon Dioxide Anion Gap BUN 42 H Creatinine 1.3 H Glucose 128 H Uric Acid Magnesium GGT AST 56 H ALT 43 H Lactate Dehydrogenase C-Reactive Protein 9.90 H Albumin 3.1 L Albumin/Globulin Ratio 0.9 L Procalcitonin 10/26/20 10/26/20 10/26/20 05:20 05:19 05:19 WBC MCV 101.3 H MCHC 30.2 L MPV 11.1 H Neut % (Auto) Lymph % (Auto) Lymph # (Auto) Seg Neutrophils % 88 H Band Neutrophils % Lymphocytes % 3 L Chloride Carbon Dioxide 18 L Anion Gap 19.0 H BUN 40 H Creatinine 1.3 H Glucose Uric Acid 9.1 H Magnesium 2.6 H GGT 192 H AST 74 H ALT 44 H Lactate Dehydrogenase 723 H C-Reactive Protein 8.90 H Albumin 3.1 L Albumin/Globulin Ratio 0.9 L Procalcitonin 0.31 H 10/25/20 10/25/20 10/25/20 10:45 10:45 10:45 WBC 4.3 L MCV MCHC MPV 11.2 H Neut % (Auto) Lymph % (Auto) Lymph # (Auto) Seg Neutrophils % 81 H Band Neutrophils % Lymphocytes % 7 L Chloride Carbon Dioxide Anion Gap BUN 32 H Creatinine 1.3 H Glucose 122 H Uric Acid 9.1 H Magnesium GGT 220 H AST 93 H ALT 51 H Lactate Dehydrogenase 621 H C-Reactive Protein 10.60 H Albumin Albumin/Globulin Ratio Procalcitonin 0.32 H 10/24/20 10/24/20 18:19 18:19 WBC 4.2 L MCV MCHC MPV 11.0 H Neut % (Auto) Lymph % (Auto) Lymph # (Auto) Seg Neutrophils % Band Neutrophils % 13 H Lymphocytes % 3 L Chloride 93 L Carbon Dioxide Anion Gap 18.0 H BUN 29 H Creatinine 1.3 H Glucose 111 H Uric Acid Magnesium GGT AST 99 H ALT 46 H Lactate Dehydrogenase C-Reactive Protein Albumin Albumin/Globulin Ratio Procalcitonin Meds: Medications Acetaminophen (Acetaminophen 325 Mg Tablet) 650 mg PO Q6HP PRN PRN Reason: PAIN/FEVER > 101 Acetaminophen/Butalbital/Caffeine (Butalb/Acetaminophen/Caffeine 1 Tablet) 1 - 2 tab PO Q6-8HP PRN PRN Reason: Migraine Headache Hydrocodone Bitart/Acetaminophen (Hydrocodone/Apap 10/325mg Tablet) 1 - 2 tab PO Q4HP PRN; Protocol PRN Reason: Pain Last Admin: 10/27/20 06:52 Dose: 1 tab Documented by: Albuterol/Ipratropium (Ipratropium/Albuterol Sulfate 1 Puff Inhaler) 2 puff INH TID [facility] Last Admin: 10/27/20 09:32 Dose: 2 puff Documented by: Albuterol/Ipratropium (Ipratropium/Albuterol 3 Ml Ampul.Neb) 3 ml NEB Q4HP PRN PRN Reason: Shortness Of Breath Last Admin: 10/27/20 02:31 Dose: 3 ml Documented by: Clonidine HCl (Clonidine Hcl 0.1 Mg Tablet) 0.1 mg PO Q8HP PRN PRN Reason: Hypertension or headache Dexamethasone (Dexamethasone 4 Mg Tablet) 6 mg PO DAILY [facility] Last Admin: 10/27/20 09:30 Dose: 6 mg Documented by: Docusate Sodium (Docusate Sodium 100 Mg Capsule) 100 mg PO BID [facility] Last Admin: 10/27/20 09:32 Dose: Not Given Documented by: Enoxaparin Sodium (Enoxaparin 40 Mg/0.4 Ml Syringe) 40 mg SQ BID [facility] Last Admin: 10/27/20 09:29 Dose: 40 mg Documented by: Guaifenesin (Guaifenesin/Dextromethorphan Oral Ermelinda) 10 ml PO Q4HP PRN PRN Reason: Cough Last Admin: 10/27/20 06:20 Dose: 10 ml Documented by: Potassium Chloride 40 meq/ (Dextrose) 520 mls @ 130 mls/hr IV UD PRN PRN Reason: Potassium < 3 Magnesium Sulfate (Magnesium Sulfate) 2 gm in 50 mls @ 50 mls/hr IV UD PRN PRN Reason: Magnesium </= 1.6 REMDESIVIR 100 mg/ Sodium (Chloride) 250 mls @ 500 mls/hr IV Q24H [facility] Stop: 10/29/20 09:29 Last Admin: 10/27/20 09:30 Dose: 500 mls/hr Documented by: Lorazepam (Lorazepam 0.5 Mg Tablet) 0.5 mg PO Q6HP PRN PRN Reason: Anxiety Last Admin: 10/27/20 10:42 Dose: 0.5 mg Documented by: Losartan Potassium (Losartan 50 Mg Tablet) 50 mg PO QAM [facility] Last Admin: 10/27/20 09:30 Dose: 50 mg Documented by: Methocarbamol (Methocarbamol 750 Mg Tablet) 750 mg PO DAILYP PRN PRN Reason: Pain Last Admin: 10/27/20 09:50 Dose: 750 mg Documented by: Montelukast Sodium (Montelukast 10 Mg Tablet) 10 mg PO QDAY [facility] Last Admin: 10/27/20 09:29 Dose: 10 mg Documented by: Omeprazole (Omeprazole 20 Mg Capsule) 20 mg PO ACB [facility] Last Admin: 10/27/20 06:43 Dose: 20 mg Documented by: Ondansetron HCl (Ondansetron 4 Mg/2 Ml Vial) 4 mg IV Q4HP PRN PRN Reason: Nausea And Vomiting Polyethylene Glycol (Polyethylene Glycol 3350 17 Gm Packet) 17 gm PO DAILYP PRN PRN Reason: Constipation Potassium Chloride (Potassium Chloride 20 Meq Tablet) 40 meq PO UD PRN PRN Reason: Potssium is 3-3.5 Potassium Chloride (Potassium Chloride 20 Meq Tablet) 40 meq PO UD PRN PRN Reason: Potassium < 3 Prochlorperazine (Prochlorperazine 10 Mg/2 Ml Vial) 10 mg IV Q6HP PRN PRN Reason: Nausea And Vomiting Senna (Sennosides 1 Tablet) 2 tab PO DAILYP PRN PRN Reason: Constipation Simvastatin (Simvastatin 20 Mg Tablet) 20 mg PO [facility] Last Admin: 10/26/20 20:07 Dose: 20 mg Documented by: Sodium Chloride (0.9 % Sodium Chloride 10 Ml Syringe) 10 ml IV Q8 [facility] Last Admin: 10/27/20 05:44 Dose: 10 ml Documented by: Spironolactone (Spironolactone 25 Mg Tablet) 25 mg PO QDAY [facility] Last Admin: 10/27/20 09:30 Dose: 25 mg Documented by: Vancomycin HCl (Vancomycin Oral Ermelinda 1,000 Mg/10 Ml Bottle) 125 mg PO Q6 [facility]; Protocol Last Admin: 10/27/20 05:44 Dose: 125 mg Documented by: Zolpidem Tartrate (Zolpidem 5 Mg Tablet) 5 - 10 mg PO HSP PRN PRN Reason: Insomnia Last Admin: 10/26/20 20:07 Dose: 5 mg Documented by: A/P Assessment and plan (1) Stage 1 acute kidney injury: Status: Acute (2) Pneumonia due to 2019-nCoV: Status: Acute (3) C. difficile colitis: Status: Acute (4) Hypoxemia: Status: Acute Narrative A/P Narrative: Assessment and Plans: 1. CoVID pneumonia with acute respiratory failure with hypoxia: Stays in inpatient PCU Isolation: airborne and contact ABG to decide whether patient can stay on high flow oxygen or need more oxygenation/ventilation via BiPAP/intubation Remdesivir Dexamethasone Lovenox No Lasix due to acute kidney injury cbc w/ auto diff in the morning to trend WBC Proning 16hr/day 2. C diff colitis: Vancomycin 125mg PO QID B85tule 3. Stage 1 acute kidney injury: Avoid nephrotoxic agents Saline lock CMP daily to trend kidney functions GI ppx: DVT ppx: Lovenox Code status: No chest compression; okay for intubation Prognosis: Extremely guarded Disposition: inpatient PCU Time Spent With Patient Time: Total time spent is greater than 50% in coordination of care (as documented) at patient's floor/unit and/or counseling patient: Total time spent with greater than 50% in coordination of care (as documented) at patient's floor/unit and/or counseling patient:: 25 - 35 minutes
--- NOTE | 2020-10-27 11:17 | Emergency Department Note ---
ED Note Addendum Note Addendum: I was notified that the patient may require intubation so I evaluated her in person in the ICU at 11:15 AM. She is awake and alert on nasal CPAP. She says that she has difficulty taking deep breaths but otherwise did not feel short of breath at this time. She is able to converse in short sentences with minimally increased work of breathing after speaking. Her oxygen saturation at this time is in the low 90s. She does not appear to require emergent intubation but I will remain available should her clinical situation evolve.
[2020-10-27] MEDS: ZOLPIDEM 5 MG TABLET PO PRN (20:32)
[2020-10-27] MEDS: SIMVASTATIN 20 MG TABLET PO SCH (20:32)
[2020-10-27] MEDS: LORazepam 2 MG/ML VIAL IV PRN (20:32)
[2020-10-28] MEDS: LORazepam 2 MG/ML VIAL IV PRN ×2 (04:18→21:16)
[2020-10-28] MEDS: HYDROcodone/APAP 10/325MG TABLET PO PRN (04:22)
[2020-10-28] MEDS: VANCOMYCIN ORAL SOL 1,000 MG/10 ML BOTTLE PO SCH ×4 (05:49→23:50)
[2020-10-28] MEDS: 0.9 % SODIUM CHLORIDE 10 ML SYRINGE IV SCH ×3 (05:50→21:47)
[2020-10-28 08:10] LABS: Basophils # (Auto) 0.03 K/mcL (0.00-0.30); Basophils % (Auto) 0.4 % (0.0-2.0); Eosinophils # (Auto) 0 K/mcL (0.00-0.70); Eosinophils % (Auto) 0 % (0.0-7.0); Hematocrit 39.6 % (34.1-44.9); Hemoglobin 11.7 g/dL (11.2-15.7); Lymphocytes % (Auto) 6.4 % (15.5-49.0); Mean Cell Volume 102.6 fL (80.0-100.0); Mean Corpuscular HGB Conc 29.5 g/dL (31.0-36.0); Mean Platelet Volume 10.8 fL (7.4-10.4); Monocytes # (Auto) 0.62 K/mcL (0.10-0.90); Neutrophils % (Auto) 85.2 % (38.0-78.0); Platelet Count 285 K/mcL (140-440); RBC 3.86 M/mcL (3.59-5.38); Red Cell Distribution Width 14.4 % (11.5-14.5); WBC 7.8 K/mcL (4.5-11.0)
[2020-10-28 08:28] LABS: ALT/SGPT 35 U/L (<40); AST/SGOT 44 U/L (<32); Albumin/Globulin Ratio 0.9 (1.0-2.3); Alkaline Phosphatase 76 U/L (39-117); Bilirubin,Total 0.3 mg/dL (0.1-1.0); Blood Urea Nitrogen 42 mg/dL (8-23); Carbon Dioxide 20 mmol/L (22-30); Chloride 105 mmol/L (96-108); Globulin 3.3 gm/dL (2.2-3.7); Glomerular Filtration Rate 46; Glucose 125 mg/dL (70-105)
[2020-10-28] MEDS: LOSARTAN 50 MG TABLET PO SCH (08:49)
[2020-10-28] MEDS: DEXAMETHASONE 4 MG TABLET PO SCH (08:49)
[2020-10-28] MEDS: ENOXAPARIN 40 MG/0.4 ML SYRINGE SQ SCH ×2 (08:49→21:17)
[2020-10-28] MEDS: OMEPRAZOLE 20 MG CAPSULE PO SCH (08:50)
[2020-10-28] MEDS: SPIRONOLACTONE 25 MG TABLET PO SCH (08:50)
[2020-10-28] MEDS: DOCUSATE SODIUM 100 MG CAPSULE PO SCH ×2 (08:50→20:59)
--- NOTE | 2020-10-28 09:16 | Emergency Department Note ---
ED Note Addendum Note Addendum: I was asked to assess the patient for possible need for intubation in the intensive care unit. Arrived at bedside approximately 9:10 AM. Her nurse and respiratory therapist at bedside. The patient is on BiPAP with oxygen saturation 90 to 92%. She is slightly tachypneic but shows no outward signs of respiratory distress at rest. She is able speak in short sentences without difficulty while on BiPAP. At this time, I do not think the patient would benefit for mechanical ventilation. She does have normal neck mobility denies any history of sleep apnea. She has no allergies relevant to medications to be used for intubation. I discussed the patient's clinical status with Dr. Obando. He will reassess the patient later. I explained to him and the ICU staff that I am readily available in the emergency department should the patient's clinical status change I would be happy to come reassess her and intubate her if indicated.
[2020-10-28] MEDS: REMDESIVIR 100 MG in 0.9 % SODIUM CHLORIDE 250 ML IV SCH (09:17)
[2020-10-28] MEDS: guaiFENesin/DEXTROMETHORPHAN ORAL SOL PO PRN ×2 (09:32→16:02)
[2020-10-28] MEDS ORDERED: LORazepam 2 MG/ML VIAL IV PRN (09:33)
--- NOTE | 2020-10-28 09:37 | Internal Med Progress Note ---
SUBJECTIVE Subjective Patient information: Note initiated : 10/28/20 at 9:34 am Service Date, if different from initiated Date: [] Patient: Tammy Blevins a 70 y/o F admitted on 10/25/20 for Shortness of breath. Chief Complaint: [CoVID pneumonia] Interval history: History of present illness: Ms. Blevins is a 70 year old F Patient presents the ED with vague complaints of just feeling ill. She has a chronic cough since March and was told it is probably allergies but has not improved. The cough has not changed. She is also chronically short of breath but she says her shortness of breath has not changed either. The only that change recently that a week ago she started feeling ill and ill and think she could tell me after asking multiple questions was made that she just kind of weak and tired fatigued but no specifics. When you see her primary care provider. She came in last night because she just has not felt any better. Patient not vaccinated. In the ED on arrival she was low 70s oxygen. Chest x-ray with bilateral infiltrates. She had a leukopenia but a mild bandemia and low lymphocytes. She was originally put on 10 L oxygen mask but was able to be titrated down to 3.5 and maintained in the ED. Creatinine is 1.3 but do not know baseline. Mild transaminitis. INR was normal pt was on lisinopril but this was stopped because of chronic cough and she was switched to Losartan. Pt with diarrhea multiple episodes in ED. c. diff pending. 10/26 Patient C. difficile positive. States she does not feel any better than yest erday. Is on Vapotherm. Has cough and shortness of breath. And diarrhea. 10/27: No diarrhea overnight. Tolerating modified proning on her side. Been on Vapotherm 60L and 95%. Afebrile overnight. c/o slightly improving SOB. c/o nonproductive cough. Denies sputum production. Denies wheezing. Denies chest pain. Denies fever or chills or sweating. Denies abdominal pain. 10/28: No diarrhea overnight. Tolerating modified proning on her side. Been on BiPAP overnight. Afebrile overnight. c/o slightly worsening SOB. c/o nonproductive cough. Denies sputum production. Denies wheezing. Denies chest pain. Denies fever or chills or sweating. Denies abdominal pain. c/o anxiety with the BiPAP mask Constitutional Vitals: Vital Signs Temp Pulse Resp BP Pulse Ox 36.7 C 72 20 123/62 91 10/28/20 04:00 10/28/20 06:00 10/28/20 06:00 10/28/20 06:00 10/28/20 06:00 Period Temp Pulse Resp BP Sys/Wilcox Pulse Ox Last 24 Hr 36.4 C-36.8 C 70-82 18-27 99-143/48-77 83-98 Intake and Output 10/27/20 10/28/20 10/28/20 21:59 05:59 13:59 Intake Total 250 Output Total 725 400 Balance -475 -400 Weight 124.103 kg Intake & Output: Intake & Output 10/27/20 10/28/20 10/28/20 21:59 05:59 13:59 Intake Total 250 Output Total 725 400 Balance -475 -400 Weight 124.103 kg Intake: IV 250 Veklury 100 mg In Sodium 250 Chloride 0.9% 250 ml @ 500 mls/ hr IV Q24H [facility] Rx#:[id number] Output: Urine Catheter Amount 400 400 Void Amount 325 Other: Urine Appearance Clear Clear Urine Color Straw Dark Yellow General appearance: cooperative and no acute distress Exam: Prone Head Head exam: Present atraumatic and normocephalic Eye Eye exam: Present EOMI and PERRL ENT ENT exam: Present mucous membranes moist, normal exam and normal external ear exam Additional comments: BiPAP Neck Neck exam: Present normal inspection; Absent lymphadenopathy, tenderness and thyromegaly Respiratory Respiratory exam: Present decreased breath sounds and rhonchi; Absent accessory muscle use, respiratory distress and wheezes Cardiovascular Cardiovascular exam: Present normal rate and rhythm; Absent JVD GI/Abdominal GI/Abdominal exam: Present normal bowel sounds and soft; Absent organomegaly and tenderness Extremities Exam Extremities exam: Present full ROM, normal capillary refill and normal inspection; Absent tenderness Neurological Exam Neurological exam: Present alert, CN II-XII intact and oriented X3; Absent motor sensory deficit Psychiatric Psychiatric exam: Present normal affect and normal mood; Absent anxious and depressed Skin Skin exam: Present dry and intact OBJ DATA Labs CBC & Chem 7: 10/28/20 06:14 10/28/20 06:14 Labs: Abnormal Lab Results 10/28/20 10/28/20 10/27/20 06:14 06:14 06:04 WBC MCV 102.6 H MCHC 29.5 L MPV 10.8 H 11.1 H Neut % (Auto) 85.2 H 83.4 H Lymph % (Auto) 6.4 L 7.9 L Lymph # (Auto) 0.50 L 0.48 L Seg Neutrophils % Lymphocytes % Carbon Dioxide 20 L Anion Gap 17.0 H BUN 42 H Creatinine 1.2 H Glucose 125 H Uric Acid Magnesium GGT AST 44 H ALT Lactate Dehydrogenase C-Reactive Protein Albumin 3.0 L Albumin/Globulin Ratio 0.9 L Procalcitonin 10/27/20 10/27/20 10/26/20 06:04 06:03 05:20 WBC MCV MCHC MPV Neut % (Auto) Lymph % (Auto) Lymph # (Auto) Seg Neutrophils % Lymphocytes % Carbon Dioxide 18 L Anion Gap 19.0 H BUN 42 H 40 H Creatinine 1.3 H 1.3 H Glucose 128 H Uric Acid 9.1 H Magnesium 2.6 H GGT 192 H AST 56 H 74 H ALT 43 H 44 H Lactate Dehydrogenase 723 H C-Reactive Protein 9.90 H 8.90 H Albumin 3.1 L 3.1 L Albumin/Globulin Ratio 0.9 L 0.9 L Procalcitonin 10/26/20 10/26/20 10/25/20 05:19 05:19 10:45 WBC MCV 101.3 H MCHC 30.2 L MPV 11.1 H Neut % (Auto) Lymph % (Auto) Lymph # (Auto) Seg Neutrophils % 88 H Lymphocytes % 3 L Carbon Dioxide Anion Gap BUN Creatinine Glucose Uric Acid Magnesium GGT AST ALT Lactate Dehydrogenase C-Reactive Protein Albumin Albumin/Globulin Ratio Procalcitonin 0.31 H 0.32 H 10/25/20 10/25/20 10:45 10:45 WBC 4.3 L MCV MCHC MPV 11.2 H Neut % (Auto) Lymph % (Auto) Lymph # (Auto) Seg Neutrophils % 81 H Lymphocytes % 7 L Carbon Dioxide Anion Gap BUN 32 H Creatinine 1.3 H Glucose 122 H Uric Acid 9.1 H Magnesium GGT 220 H AST 93 H ALT 51 H Lactate Dehydrogenase 621 H C-Reactive Protein 10.60 H Albumin Albumin/Globulin Ratio Procalcitonin Meds: Medications Acetaminophen (Acetaminophen 325 Mg Tablet) 650 mg PO Q6HP PRN PRN Reason: PAIN/FEVER > 101 Acetaminophen/Butalbital/Caffeine (Butalb/Acetaminophen/Caffeine 1 Tablet) 1 - 2 tab PO Q6-8HP PRN PRN Reason: Migraine Headache Hydrocodone Bitart/Acetaminophen (Hydrocodone/Apap 10/325mg Tablet) 1 - 2 tab PO Q4HP PRN; Protocol PRN Reason: Pain Last Admin: 10/28/20 04:22 Dose: 1 tab Documented by: Albuterol/Ipratropium (Ipratropium/Albuterol Sulfate 1 Puff Inhaler) 2 puff INH TID [facility] Last Admin: 10/27/20 20:32 Dose: 2 puff Documented by: Albuterol/Ipratropium (Ipratropium/Albuterol 3 Ml Ampul.Neb) 3 ml NEB Q4HP PRN PRN Reason: Shortness Of Breath Last Admin: 10/27/20 02:31 Dose: 3 ml Documented by: Clonidine HCl (Clonidine Hcl 0.1 Mg Tablet) 0.1 mg PO Q8HP PRN PRN Reason: Hypertension or headache Docusate Sodium (Docusate Sodium 100 Mg Capsule) 100 mg PO BID [facility] Last Admin: 10/28/20 08:50 Dose: Not Given Documented by: Enoxaparin Sodium (Enoxaparin 40 Mg/0.4 Ml Syringe) 40 mg SQ BID [facility] Last Admin: 10/28/20 08:49 Dose: 40 mg Documented by: Guaifenesin (Guaifenesin/Dextromethorphan Oral Ermelinda) 10 ml PO Q4HP PRN PRN Reason: Cough Last Admin: 10/27/20 14:41 Dose: 10 ml Documented by: Potassium Chloride 40 meq/ (Dextrose) 520 mls @ 130 mls/hr IV UD PRN PRN Reason: Potassium < 3 Magnesium Sulfate (Magnesium Sulfate) 2 gm in 50 mls @ 50 mls/hr IV UD PRN PRN Reason: Magnesium </= 1.6 REMDESIVIR 100 mg/ Sodium (Chloride) 250 mls @ 500 mls/hr IV Q24H [facility] Stop: 10/29/20 09:29 Last Admin: 10/28/20 09:17 Dose: 500 mls/hr Documented by: Lorazepam (Lorazepam 2 Mg/Ml Vial) 0.5 mg IV Q4HP PRN PRN Reason: ANXIETY/SEDATION Losartan Potassium (Losartan 50 Mg Tablet) 50 mg PO QAM [facility] Last Admin: 10/28/20 08:49 Dose: 50 mg Documented by: Methocarbamol (Methocarbamol 750 Mg Tablet) 750 mg PO DAILYP PRN PRN Reason: Pain Last Admin: 10/27/20 09:50 Dose: 750 mg Documented by: Montelukast Sodium (Montelukast 10 Mg Tablet) 10 mg PO QDAY [facility] Last Admin: 10/27/20 09:29 Dose: 10 mg Documented by: Ondansetron HCl (Ondansetron 4 Mg/2 Ml Vial) 4 mg IV Q4HP PRN PRN Reason: Nausea And Vomiting Polyethylene Glycol (Polyethylene Glycol 3350 17 Gm Packet) 17 gm PO DAILYP PRN PRN Reason: Constipation Potassium Chloride (Potassium Chloride 20 Meq Tablet) 40 meq PO UD PRN PRN Reason: Potssium is 3-3.5 Potassium Chloride (Potassium Chloride 20 Meq Tablet) 40 meq PO UD PRN PRN Reason: Potassium < 3 Prochlorperazine (Prochlorperazine 10 Mg/2 Ml Vial) 10 mg IV Q6HP PRN PRN Reason: Nausea And Vomiting Senna (Sennosides 1 Tablet) 2 tab PO DAILYP PRN PRN Reason: Constipation Simvastatin (Simvastatin 20 Mg Tablet) 20 mg PO [facility] Last Admin: 10/27/20 20:32 Dose: 20 mg Documented by: Sodium Chloride (0.9 % Sodium Chloride 10 Ml Syringe) 10 ml IV Q8 [facility] Last Admin: 10/28/20 05:50 Dose: 10 ml Documented by: Spironolactone (Spironolactone 25 Mg Tablet) 25 mg PO QDAY [facility] Last Admin: 10/28/20 08:50 Dose: 25 mg Documented by: Vancomycin HCl (Vancomycin Oral Ermelinda 1,000 Mg/10 Ml Bottle) 125 mg PO Q6 [facility]; Protocol Last Admin: 10/28/20 05:49 Dose: 125 mg Documented by: Zolpidem Tartrate (Zolpidem 5 Mg Tablet) 5 - 10 mg PO HSP PRN PRN Reason: Insomnia Last Admin: 10/27/20 20:32 Dose: 10 mg Documented by: A/P Assessment and plan (1) Stage 1 acute kidney injury: Status: Acute (2) Pneumonia due to 2019-nCoV: Status: Acute (3) C. difficile colitis: Status: Acute (4) Hypoxemia: Status: Acute Narrative A/P Narrative: Assessment and Plans: 1. CoVID pneumonia with acute respiratory failure with hypoxia: Stays in inpatient PCU Isolation: airborne and contact ABG daily BiPAP Remdesivir Dexamethasone Lovenox No Lasix due to acute kidney injury cbc w/ auto diff in the morning to trend WBC Proning 16hr/day Ativan PRN anxiety to help patient to tolerate BiPAP 2. C diff colitis: Vancomycin 125mg PO QID [id number] 3. Stage 1 acute kidney injury: Avoid nephrotoxic agents Saline lock CMP daily to trend kidney functions GI ppx: IV Protonix DVT ppx: Lovenox Code status: No chest compression; okay for intubation Prognosis: Extremely guarded Disposition: inpatient PCU Time Spent With Patient Time: Total time spent is greater than 50% in coordination of care (as documented) at patient's floor/unit and/or counseling patient:
[2020-10-28] MEDS: MONTELUKAST 10 MG TABLET PO SCH (10:22)
[2020-10-28] MEDS: IPRATROPIUM/ALBUTEROL SULFATE 1 PUFF INHALER INH SCH ×3 (10:33→21:00)
[2020-10-28] MEDS ORDERED: ONDANSETRON 4 MG/2 ML VIAL IV PRN (12:49)
[2020-10-28] MEDS ORDERED: cloNIDine HCL 0.1 MG TABLET PO PRN (12:49)
[2020-10-28] MEDS ORDERED: IPRATROPIUM/ALBUTEROL 3 ML AMPUL.NEB NEB PRN (12:49)
[2020-10-28] MEDS ORDERED: POTASSIUM CHLORIDE 20 MEQ TABLET PO PRN ×2 (12:49)
[2020-10-28] MEDS ORDERED: MAGNESIUM SULFATE 2 GM/50 ML BAG IV PRN (12:49)
[2020-10-28] MEDS ORDERED: POLYETHYLENE GLYCOL 3350 17 GM PACKET PO PRN (12:49)
[2020-10-28] MEDS ORDERED: PROCHLORPERAZINE 10 MG/2 ML VIAL IV PRN (12:49)
[2020-10-28] MEDS ORDERED: BUTALB/ACETAMINOPHEN/CAFFEINE 1 TABLET PO PRN (12:49)
[2020-10-28] MEDS ORDERED: METHOCARBAMOL 750 MG TABLET PO PRN (12:49)
[2020-10-28] MEDS ORDERED: ACETAMINOPHEN 325 MG TABLET PO PRN (12:49)
[2020-10-28] MEDS ORDERED: POTASSIUM CHLORIDE 40 MEQ in DEXTROSE 5% IN WATER 500 ML IV PRN (12:49)
[2020-10-28] MEDS ORDERED: SENNOSIDES 1 TABLET PO PRN (12:49)
[2020-10-28] MEDS ORDERED: ZOLPIDEM 5 MG TABLET PO PRN (12:49)
[2020-10-28] MEDS ORDERED: PANTOPRAZOLE 40 MG VIAL IV ONE (13:25)
[2020-10-28] MEDS: IPRATROPIUM/ALBUTEROL 3 ML AMPUL.NEB NEB SCH ×3 (15:03→23:13)
[2020-10-28] MEDS: CHLORHEXIDINE GLUCONATE 1 ML ORAL.SOL SSP SCH ×2 (16:01→21:17)
[2020-10-28] MEDS ORDERED: NYSTATIN 500,000 UNITS/5 ML ORAL.SUSP SSW SCH (21:00)
[2020-10-28] MEDS: SIMVASTATIN 20 MG TABLET PO SCH (21:17)
[2020-10-29] MEDS: LORazepam 2 MG/ML VIAL IV PRN ×4 (01:34→23:14)
[2020-10-29] MEDS: IPRATROPIUM/ALBUTEROL 3 ML AMPUL.NEB NEB SCH ×6 (02:35→22:26)
[2020-10-29] MEDS: 0.9 % SODIUM CHLORIDE 10 ML SYRINGE IV SCH ×3 (05:46→20:57)
[2020-10-29] MEDS: VANCOMYCIN ORAL SOL 1,000 MG/10 ML BOTTLE PO SCH ×4 (05:46→23:12)
[2020-10-29] MEDS: guaiFENesin/DEXTROMETHORPHAN ORAL SOL PO PRN ×3 (07:10→18:22)
[2020-10-29] MEDS: PANTOPRAZOLE 40 MG VIAL IV SCH (07:28)
[2020-10-29] MEDS ORDERED: PANTOPRAZOLE 40 MG VIAL IV SCH (07:30)
[2020-10-29 07:58] LABS: Basophils # (Auto) 0.02 K/mcL (0.00-0.30); Basophils % (Auto) 0.2 % (0.0-2.0); Eosinophils # (Auto) 0 K/mcL (0.00-0.70); Eosinophils % (Auto) 0 % (0.0-7.0); Hematocrit 36.2 % (34.1-44.9); Hemoglobin 11.6 g/dL (11.2-15.7); Lymphocytes # (Auto) 0.45 K/mcL (1.50-4.80); Lymphocytes % (Auto) 4.2 % (15.5-49.0); Mean Cell Volume 97.3 fL (80.0-100.0); Mean Platelet Volume 10.7 fL (7.4-10.4); Monocytes # (Auto) 0.82 K/mcL (0.10-0.90); Monocytes % (Auto) 7.6 % (1.0-12.0); Platelet Count 368 K/mcL (140-440); RBC 3.72 M/mcL (3.59-5.38); Red Cell Distribution Width 14.3 % (11.5-14.5); WBC 10.7 K/mcL (4.5-11.0)
[2020-10-29 08:57] LABS: ALT/SGPT 37 U/L (<40); AST/SGOT 47 U/L (<32); Albumin 3.1 gm/dL (3.2-5.2); Albumin/Globulin Ratio 0.9 (1.0-2.3); Alkaline Phosphatase 95 U/L (39-117); Bilirubin,Total 0.4 mg/dL (0.1-1.0); Blood Urea Nitrogen 37 mg/dL (8-23); Calcium 8.8 mg/dL (8.6-10.4); Carbon Dioxide 25 mmol/L (22-30); Chloride 104 mmol/L (96-108); Globulin 3.5 gm/dL (2.2-3.7); Glomerular Filtration Rate 46; Glucose 138 mg/dL (70-105)
[2020-10-29] MEDS: IPRATROPIUM/ALBUTEROL SULFATE 1 PUFF INHALER INH SCH ×3 (08:58→20:18)
[2020-10-29] MEDS: MONTELUKAST 10 MG TABLET PO SCH ×2 (08:59→11:37)
[2020-10-29] MEDS: DOCUSATE SODIUM 100 MG CAPSULE PO SCH ×2 (08:59→20:17)
[2020-10-29] MEDS ORDERED: DEXAMETHASONE 10 MG/ML VIAL IV SCH (09:00)
[2020-10-29] MEDS ORDERED: REMDESIVIR 100 MG in 0.9 % SODIUM CHLORIDE 250 ML IV SCH (09:00)
[2020-10-29] MEDS: SPIRONOLACTONE 25 MG TABLET PO SCH (09:07)
[2020-10-29] MEDS: DEXAMETHASONE 10 MG/ML VIAL IV SCH (09:08)
[2020-10-29] MEDS: LOSARTAN 50 MG TABLET PO SCH (09:08)
[2020-10-29] MEDS: ENOXAPARIN 40 MG/0.4 ML SYRINGE SQ SCH ×2 (09:09→20:56)
[2020-10-29] MEDS: CHLORHEXIDINE GLUCONATE 1 ML ORAL.SOL SSP SCH ×2 (09:09→20:56)
--- NOTE | 2020-10-29 09:28 | Internal Med Progress Note ---
SUBJECTIVE Subjective Patient information: Note initiated : 10/29/20 at 9:25 am Service Date, if different from initiated Date: [] Patient: Tammy Blevins a 70 y/o F admitted on 10/25/20 for Shortness of breath. Chief Complaint: [CoVID pneumonia] Interval history: History of present illness: Ms. Blevins is a 70 year old F Patient presents the ED with vague complaints of just feeling ill. She has a chronic cough since March and was told it is probably allergies but has not improved. The cough has not changed. She is also chronically short of breath but she says her shortness of breath has not changed either. The only that change recently that a week ago she started feeling ill and ill and think she could tell me after asking multiple questions was made that she just kind of weak and tired fatigued but no specifics. When you see her primary care provider. She came in last night because she just has not felt any better. Patient not vaccinated. In the ED on arrival she was low 70s oxygen. Chest x-ray with bilateral infiltrates. She had a leukopenia but a mild bandemia and low lymphocytes. She was originally put on 10 L oxygen mask but was able to be titrated down to 3.5 and maintained in the ED. Creatinine is 1.3 but do not know baseline. Mild transaminitis. INR was normal pt was on lisinopril but this was stopped because of chronic cough and she was switched to Losartan. Pt with diarrhea multiple episodes in ED. c. diff pending. 10/26 Patient C. difficile positive. States she does not feel any better than yest erday. Is on Vapotherm. Has cough and shortness of breath. And diarrhea. 10/27: No diarrhea overnight. Tolerating modified proning on her side. Been on Vapotherm 60L and 95%. Afebrile overnight. c/o slightly improving SOB. c/o nonproductive cough. Denies sputum production. Denies wheezing. Denies chest pain. Denies fever or chills or sweating. Denies abdominal pain. 10/28: No diarrhea overnight. Tolerating modified proning on her side. Been on BiPAP overnight. Afebrile overnight. c/o slightly worsening SOB. c/o nonproductive cough. Denies sputum production. Denies wheezing. Denies chest pain. Denies fever or chills or sweating. Denies abdominal pain. c/o anxiety with the BiPAP mask 10/29: No diarrhea overnight. Afebrile overnight. Tolerating modified proning on her side. Been on BiPAP overnight, currently FiO2 65%. c/o SOB. Denies cough, sputum production, or respiratory wheezing. Denies chest pain. Denies fever, chills, or sweating. Denies abdominal pain. Constitutional Vitals: Vital Signs Temp Pulse Resp BP Pulse Ox 36.3 C 96 H 27 H 116/61 92 10/29/20 08:01 10/29/20 09:20 10/29/20 09:20 10/29/20 09:02 10/29/20 09:20 Period Temp Pulse Resp BP Sys/Wilcox Pulse Ox Last 24 Hr 36.1 C-36.7 C 74-99 18-33 116-150/51-84 89-97 Intake and Output 10/28/20 10/29/20 10/29/20 21:59 05:59 13:59 Intake Total 200 300 237 Output Total 310 195 121 Balance -110 105 116 Weight 120.792 kg Intake & Output: Intake & Output 10/28/20 10/29/20 10/29/20 21:59 05:59 13:59 Intake Total 200 300 237 Output Total 310 195 121 Balance -110 105 116 Weight 120.792 kg Intake: Oral 200 300 237 Output: Urine Catheter Amount 310 195 121 Other: Urine Appearance Clear Sediment Clear Uretheral (Beasley) Sediment Sediment Hematuria Urine Color Dark Yellow Dark Yellow Bright Yellow Uretheral (Beasley) Dark Yellow Dark Yellow Urine Odor Normal General appearance: cooperative and no acute distress Exam: Patient is lying on her right side Head Head exam: Present atraumatic and normocephalic Eye Eye exam: Present EOMI and PERRL ENT ENT exam: Present mucous membranes moist, normal exam and normal external ear exam Additional comments: BiPAP in place Neck Neck exam: Present normal inspection; Absent lymphadenopathy, tenderness and thyromegaly Respiratory Respiratory exam: Present decreased breath sounds and rhonchi; Absent accessory muscle use, respiratory distress and wheezes Cardiovascular Cardiovascular exam: Present normal rate and rhythm; Absent JVD GI/Abdominal GI/Abdominal exam: Present normal bowel sounds and soft; Absent organomegaly and tenderness Extremities Exam Extremities exam: Present full ROM, normal capillary refill and normal inspection; Absent tenderness Neurological Exam Neurological exam: Present alert, CN II-XII intact and oriented X3; Absent motor sensory deficit Psychiatric Psychiatric exam: Present normal affect and normal mood; Absent anxious and depressed Skin Skin exam: Present dry and intact OBJ DATA Labs CBC & Chem 7: 10/29/20 06:28 10/29/20 06:28 Labs: Abnormal Lab Results 10/29/20 10/29/20 10/28/20 06:28 06:28 06:14 MCV MCHC MPV 10.7 H Neut % (Auto) 88.0 H Lymph % (Auto) 4.2 L Lymph # (Auto) 0.45 L Seg Neutrophils % Lymphocytes % Absolute Neutrophils 9.43 H Carbon Dioxide 20 L Anion Gap 17.0 H BUN 37 H 42 H Creatinine 1.2 H 1.2 H Glucose 138 H 125 H AST 47 H 44 H ALT C-Reactive Protein Albumin 3.1 L 3.0 L Albumin/Globulin Ratio 0.9 L 0.9 L 10/28/20 10/27/20 10/27/20 06:14 06:04 06:04 MCV 102.6 H MCHC 29.5 L MPV 10.8 H 11.1 H Neut % (Auto) 85.2 H 83.4 H Lymph % (Auto) 6.4 L 7.9 L Lymph # (Auto) 0.50 L 0.48 L Seg Neutrophils % Lymphocytes % Absolute Neutrophils Carbon Dioxide Anion Gap BUN Creatinine Glucose AST ALT C-Reactive Protein 9.90 H Albumin Albumin/Globulin Ratio 10/27/20 10/26/20 06:03 05:19 MCV MCHC MPV Neut % (Auto) Lymph % (Auto) Lymph # (Auto) Seg Neutrophils % 88 H Lymphocytes % 3 L Absolute Neutrophils Carbon Dioxide Anion Gap BUN 42 H Creatinine 1.3 H Glucose 128 H AST 56 H ALT 43 H C-Reactive Protein Albumin 3.1 L Albumin/Globulin Ratio 0.9 L Meds: Medications Acetaminophen (Acetaminophen 325 Mg Tablet) 650 mg PO Q6HP PRN PRN Reason: PAIN/FEVER > 101 Acetaminophen/Butalbital/Caffeine (Butalb/Acetaminophen/Caffeine 1 Tablet) 1 - 2 tab PO Q6-8HP PRN PRN Reason: Migraine Headache Hydrocodone Bitart/Acetaminophen (Hydrocodone/Apap 10/325mg Tablet) 1 - 2 tab PO Q4HP PRN; Protocol PRN Reason: Pain Albuterol/Ipratropium (Ipratropium/Albuterol Sulfate 1 Puff Inhaler) 2 puff INH TID [facility] Last Admin: 10/29/20 08:58 Dose: Not Given Documented by: Albuterol/Ipratropium (Ipratropium/Albuterol 3 Ml Ampul.Neb) 3 ml NEB Q4HP PRN PRN Reason: Shortness Of Breath Albuterol/Ipratropium (Ipratropium/Albuterol 3 Ml Ampul.Neb) 3 ml NEB Q4HRT [facility] Last Admin: 10/29/20 08:18 Dose: 3 ml Documented by: Chlorhexidine Gluconate (Chlorhexidine Gluconate 1 Ml Oral.Ermelinda) 15 ml SSP BID [facility] Last Admin: 10/29/20 09:09 Dose: 15 ml Documented by: Clonidine HCl (Clonidine Hcl 0.1 Mg Tablet) 0.1 mg PO Q8HP PRN PRN Reason: Hypertension or headache Dexamethasone (Dexamethasone 10 Mg/Ml Vial) 6 mg IV DAILY [facility] Last Admin: 10/29/20 09:08 Dose: 6 mg Documented by: Docusate Sodium (Docusate Sodium 100 Mg Capsule) 100 mg PO BID [facility] Last Admin: 10/29/20 08:59 Dose: Not Given Documented by: Enoxaparin Sodium (Enoxaparin 40 Mg/0.4 Ml Syringe) 40 mg SQ BID [facility] Last Admin: 10/29/20 09:09 Dose: 40 mg Documented by: Guaifenesin (Guaifenesin/Dextromethorphan Oral Ermelinda) 10 ml PO Q4HP PRN PRN Reason: Cough Last Admin: 10/28/20 16:02 Dose: 10 ml Documented by: Magnesium Sulfate (Magnesium Sulfate) 2 gm in 50 mls @ 50 mls/hr IV UD PRN PRN Reason: Magnesium </= 1.6 REMDESIVIR 100 mg/ Sodium (Chloride) 250 mls @ 500 mls/hr IV Q24H [facility] Stop: 10/29/20 09:29 Last Admin: 10/29/20 09:09 Dose: 500 mls/hr Documented by: Potassium Chloride 40 meq/ (Dextrose) 520 mls @ 130 mls/hr IV UD PRN PRN Reason: Potassium < 3 Lorazepam (Lorazepam 2 Mg/Ml Vial) 0.5 mg IV Q4HP PRN PRN Reason: ANXIETY/SEDATION Last Admin: 10/29/20 07:10 Dose: 0.5 mg Documented by: Losartan Potassium (Losartan 50 Mg Tablet) 50 mg PO QAM [facility] Last Admin: 10/29/20 09:08 Dose: 50 mg Documented by: Methocarbamol (Methocarbamol 750 Mg Tablet) 750 mg PO DAILYP PRN PRN Reason: Pain Montelukast Sodium (Montelukast 10 Mg Tablet) 10 mg PO QDAY [facility] Last Admin: 10/29/20 08:59 Dose: Not Given Documented by: Ondansetron HCl (Ondansetron 4 Mg/2 Ml Vial) 4 mg IV Q4HP PRN PRN Reason: Nausea And Vomiting Pantoprazole Sodium (Pantoprazole 40 Mg Vial) 40 mg IV QAMAC [facility] Last Admin: 10/29/20 07:28 Dose: 40 mg Documented by: Polyethylene Glycol (Polyethylene Glycol 3350 17 Gm Packet) 17 gm PO DAILYP PRN PRN Reason: Constipation Potassium Chloride (Potassium Chloride 20 Meq Tablet) 40 meq PO UD PRN PRN Reason: Potssium is 3-3.5 Potassium Chloride (Potassium Chloride 20 Meq Tablet) 40 meq PO UD PRN PRN Reason: Potassium < 3 Prochlorperazine (Prochlorperazine 10 Mg/2 Ml Vial) 10 mg IV Q6HP PRN PRN Reason: Nausea And Vomiting Senna (Sennosides 1 Tablet) 2 tab PO DAILYP PRN PRN Reason: Constipation Simvastatin (Simvastatin 20 Mg Tablet) 20 mg PO [facility] Last Admin: 10/28/20 21:17 Dose: 20 mg Documented by: Sodium Chloride (0.9 % Sodium Chloride 10 Ml Syringe) 10 ml IV Q8 [facility] Last Admin: 10/29/20 05:46 Dose: 10 ml Documented by: Spironolactone (Spironolactone 25 Mg Tablet) 25 mg PO QDAY [facility] Last Admin: 10/29/20 09:07 Dose: 25 mg Documented by: Vancomycin HCl (Vancomycin Oral Ermelinda 1,000 Mg/10 Ml Bottle) 125 mg PO Q6 [facility]; Protocol Last Admin: 10/29/20 05:46 Dose: 125 mg Documented by: Zolpidem Tartrate (Zolpidem 5 Mg Tablet) 5 - 10 mg PO HSP PRN PRN Reason: Insomnia A/P Assessment and plan (1) Stage 1 acute kidney injury: Status: Acute (2) Pneumonia due to 2019-nCoV: Status: Acute (3) C. difficile colitis: Status: Acute (4) Hypoxemia: Status: Acute Narrative A/P Narrative: Assessment and Plans: 1. CoVID pneumonia with acute respiratory failure with hypoxia: Stays in inpatient PCU Isolation: airborne and contact ABG daily BiPAP Remdesivir X10 days Dexamethasone Lovenox No Lasix due to acute kidney injury cbc w/ auto diff in the morning to trend WBC Proning 16hr/day or as much as patient could tolerate Ativan PRN anxiety to help patient to tolerate BiPAP Repeat CXR at least every few days 2. C diff colitis: Vancomycin 125mg PO QID [id number] 3. Stage 1 acute kidney injury: Avoid nephrotoxic agents Saline lock CMP daily to trend kidney functions GI ppx: IV Protonix DVT ppx: Lovenox Code status: No chest compression; okay for intubation Prognosis: Extremely guarded Disposition: inpatient PCU Time Spent With Patient Time: Total time spent is greater than 50% in coordination of care (as documented) at patient's floor/unit and/or counseling patient:
--- NOTE | 2020-10-29 10:09 | XRay Report ---
CLINICAL INFORMATION: f/u study covid pneumonia COMPARISON: 10/26/2020 FINDINGS: Moderate patchy infiltrates in the mid and lower lungs show slight progression. Cardiac mediastinal silhouette and pulmonary vessels are normal IMPRESSION: Moderate bilateral mid and lower lung infiltrates showing slight progression Interpreted and Authenticated by: Andrew Bullock 10/29/20
[2020-10-29] MEDS: SIMVASTATIN 20 MG TABLET PO SCH (20:56)
[2020-10-29] MEDS: HYDROcodone/APAP 10/325MG TABLET PO PRN (23:26)
[2020-10-30] MEDS: IPRATROPIUM/ALBUTEROL 3 ML AMPUL.NEB NEB SCH ×6 (03:18→23:20)
[2020-10-30] MEDS: LORazepam 2 MG/ML VIAL IV PRN ×4 (04:15→20:59)
[2020-10-30] MEDS: 0.9 % SODIUM CHLORIDE 10 ML SYRINGE IV SCH ×3 (05:25→21:00)
[2020-10-30] MEDS: VANCOMYCIN ORAL SOL 1,000 MG/10 ML BOTTLE PO SCH ×4 (05:25→23:56)
[2020-10-30] MEDS: PANTOPRAZOLE 40 MG VIAL IV SCH (07:00)
[2020-10-30 07:18] LABS: Basophils # (Auto) 0.06 K/mcL (0.00-0.30); Basophils % (Auto) 0.5 % (0.0-2.0); Eosinophils # (Auto) 0.01 K/mcL (0.00-0.70); Eosinophils % (Auto) 0.1 % (0.0-7.0); Hematocrit 37.2 % (34.1-44.9); Hemoglobin 11.4 g/dL (11.2-15.7); Lymphocytes % (Auto) 3.1 % (15.5-49.0); Mean Cell Volume 98.7 fL (80.0-100.0); Mean Corpuscular HGB Conc 30.6 g/dL (31.0-36.0); Mean Platelet Volume 10.7 fL (7.4-10.4); Monocytes # (Auto) 0.53 K/mcL (0.10-0.90); Monocytes % (Auto) 4.2 % (1.0-12.0); Neutrophils % (Auto) 92.1 % (38.0-78.0); Platelet Count 395 K/mcL (140-440); RBC 3.77 M/mcL (3.59-5.38); Red Cell Distribution Width 14.3 % (11.5-14.5); WBC 12.7 K/mcL (4.5-11.0)
[2020-10-30 07:55] LABS: ALT/SGPT 43 U/L (<40); AST/SGOT 55 U/L (<32); Albumin 3.2 gm/dL (3.2-5.2); Albumin/Globulin Ratio 0.9 (1.0-2.3); Alkaline Phosphatase 90 U/L (39-117); Bilirubin,Total 0.5 mg/dL (0.1-1.0); Blood Urea Nitrogen 33 mg/dL (8-23); Calcium 8.7 mg/dL (8.6-10.4); Carbon Dioxide 24 mmol/L (22-30); Chloride 103 mmol/L (96-108); Globulin 3.6 gm/dL (2.2-3.7); Glomerular Filtration Rate 46; Glucose 133 mg/dL (70-105)
[2020-10-30] MEDS: IPRATROPIUM/ALBUTEROL SULFATE 1 PUFF INHALER INH SCH ×3 (09:00→20:12)
[2020-10-30] MEDS: DOCUSATE SODIUM 100 MG CAPSULE PO SCH ×2 (09:00→20:11)
[2020-10-30] MEDS: ENOXAPARIN 40 MG/0.4 ML SYRINGE SQ SCH ×2 (09:09→20:59)
[2020-10-30] MEDS: SPIRONOLACTONE 25 MG TABLET PO SCH (09:10)
[2020-10-30] MEDS: LOSARTAN 50 MG TABLET PO SCH (09:10)
[2020-10-30] MEDS: DEXAMETHASONE 10 MG/ML VIAL IV SCH (09:10)
[2020-10-30] MEDS: MONTELUKAST 10 MG TABLET PO SCH (09:10)
[2020-10-30] MEDS: CHLORHEXIDINE GLUCONATE 1 ML ORAL.SOL SSP SCH ×2 (09:11→20:59)
[2020-10-30] MEDS: REMDESIVIR 100 MG in 0.9 % SODIUM CHLORIDE 250 ML IV SCH (10:37)
--- NOTE | 2020-10-30 11:18 | Internal Med Progress Note ---
SUBJECTIVE Subjective Patient information: Note initiated : 10/30/20 at 11:13 am Service Date, if different from initiated Date: [] Patient: Tammy Blevins a 70 y/o F admitted on 10/25/20 for Shortness of breath. Chief Complaint: [CoVID pneumonia, c diff colitis] Interval history: History of present illness: Ms. Blevins is a 70 year old F Patient presents the ED with vague complaints of just feeling ill. She has a chronic cough since March and was told it is probably allergies but has not improved. The cough has not changed. She is also chronically short of breath but she says her shortness of breath has not changed either. The only that change recently that a week ago she started feeling ill and ill and think she could tell me after asking multiple questions was made that she just kind of weak and tired fatigued but no specifics. When you see her primary care provider. She came in last night because she just has not felt any better. Patient not vaccinated. In the ED on arrival she was low 70s oxygen. Chest x-ray with bilateral infiltrates. She had a leukopenia but a mild bandemia and low lymphocytes. She was originally put on 10 L oxygen mask but was able to be titrated down to 3.5 and maintained in the ED. Creatinine is 1.3 but do not know baseline. Mild transaminitis. INR was normal pt was on lisinopril but this was stopped because of chronic cough and she was switched to Losartan. Pt with diarrhea multiple episodes in ED. c. diff pending. 10/26 Patient C. difficile positive. States she does not feel any better than yesterday. Is on Vapotherm. Has cough and shortness of breath. And diarrhea. 10/27: No diarrhea overnight. Tolerating modified proning on her side. Been on Vapotherm 60L and 95%. Afebrile overnight. c/o slightly improving SOB. c/o nonproductive cough. Denies sputum production. Denies wheezing. Denies chest pain. Denies fever or chills or sweating. Denies abdominal pain. 10/28: No diarrhea overnight. Tolerating modified proning on her side. Been on BiPAP overnight. Afebrile overnight. c/o slightly worsening SOB. c/o nonproductive cough. Denies sputum production. Denies wheezing. Denies chest pain. Denies fever or chills or sweating. Denies abdominal pain. c/o anxiety with the BiPAP mask 10/29: No diarrhea overnight. Afebrile overnight. Tolerating modified proning on her side. Been on BiPAP overnight, currently FiO2 65%. c/o SOB. Denies cough, sputum production, or respiratory wheezing. Denies chest pain. Denies fever, chills, or sweating. Denies abdominal pain. 10/30: No diarrhea overnight. Afebrile overnight. Been on CPAP overnight. WBC 10.7-->12.7. Tachycardia with HR in the 100s bpm since overnight. c/o SOB. Denies cough, sputum production, or respiratory wheezing. Denies fever, chills, or sweating. Constitutional Vitals: Vital Signs Temp Pulse Resp BP Pulse Ox 37.2 C 115 H 30 H 147/70 98 10/30/20 08:01 10/30/20 10:01 10/30/20 10:01 10/30/20 10:01 10/30/20 10:01 Period Temp Pulse Resp BP Sys/Wilcox Pulse Ox Last 24 Hr 36.1 C-37.2 C 60-115 10-30 86-162/55-124 88-98 Intake and Output 10/29/20 10/30/20 10/30/20 21:59 05:59 13:59 Intake Total 350 400 220 Output Total 388 175 80 Balance -38 225 140 Weight 120.701 kg Intake & Output: Intake & Output 10/29/20 10/30/20 10/30/20 21:59 05:59 13:59 Intake Total 350 400 220 Output Total 388 175 80 Balance -38 225 140 Weight 120.701 kg Intake: Nourishment/Supplement quantity 200 (ml) Oral 150 400 220 Output: Urine Catheter Amount 388 150 80 Void Amount 25 Other: Nourishment/Supplement name Ensure Clear Urine Appearance Clear Sediment Cloudy Uretheral (Beasley) Sediment Sediment Urine Color Dark Yellow Bright Yellow Bright Yellow Uretheral (Beasley) Dark Yellow Dark Yellow Urine Odor Normal Normal Stool Size Moderate Moderate Stool Color Brown Brown Stool Consistency Loose Liquid # Bowel Movements 1 1 # of times incontinent of 1 1 Bowels General appearance: cooperative and no acute distress Exam: Patient is lying on her right side Head Head exam: Present atraumatic and normocephalic Eye Eye exam: Present EOMI and PERRL ENT ENT exam: Present mucous membranes moist, normal exam and normal external ear exam Additional comments: CPAP in place Neck Neck exam: Present normal inspection; Absent lymphadenopathy, tenderness and thyromegaly Respiratory Respiratory exam: Present rhonchi; Absent accessory muscle use, respiratory distress and wheezes Cardiovascular Cardiovascular exam: Present tachycardia; Absent JVD GI/Abdominal GI/Abdominal exam: Present normal bowel sounds and soft; Absent organomegaly and tenderness Extremities Exam Extremities exam: Present full ROM, normal capillary refill and normal inspection; Absent tenderness Neurological Exam Neurological exam: Present alert, CN II-XII intact and oriented X3; Absent motor sensory deficit Psychiatric Psychiatric exam: Present normal affect and normal mood; Absent anxious and depressed Skin Skin exam: Present dry and intact OBJ DATA Labs CBC & Chem 7: 10/30/20 06:09 10/30/20 06:09 Labs: Abnormal Lab Results 10/30/20 10/30/20 10/29/20 06:09 06:09 06:28 WBC 12.7 H MCV MCHC 30.6 L MPV 10.7 H Neut % (Auto) 92.1 H Lymph % (Auto) 3.1 L Lymph # (Auto) 0.40 L Absolute Neutrophils 11.70 H Carbon Dioxide Anion Gap BUN 33 H 37 H Creatinine 1.2 H 1.2 H Glucose 133 H 138 H AST 55 H 47 H ALT 43 H Albumin 3.1 L Albumin/Globulin Ratio 0.9 L 0.9 L 10/29/20 10/28/20 10/28/20 06:28 06:14 06:14 WBC MCV 102.6 H MCHC 29.5 L MPV 10.7 H 10.8 H Neut % (Auto) 88.0 H 85.2 H Lymph % (Auto) 4.2 L 6.4 L Lymph # (Auto) 0.45 L 0.50 L Absolute Neutrophils 9.43 H Carbon Dioxide 20 L Anion Gap 17.0 H BUN 42 H Creatinine 1.2 H Glucose 125 H AST 44 H ALT Albumin 3.0 L Albumin/Globulin Ratio 0.9 L Meds: Medications Acetaminophen (Acetaminophen 325 Mg Tablet) 650 mg PO Q6HP PRN PRN Reason: PAIN/FEVER > 101 Acetaminophen/Butalbital/Caffeine (Butalb/Acetaminophen/Caffeine 1 Tablet) 1 - 2 tab PO Q6-8HP PRN PRN Reason: Migraine Headache Hydrocodone Bitart/Acetaminophen (Hydrocodone/Apap 10/325mg Tablet) 1 - 2 tab PO Q4HP PRN; Protocol PRN Reason: Pain Last Admin: 10/29/20 23:26 Dose: 2 tab Documented by: Albuterol/Ipratropium (Ipratropium/Albuterol Sulfate 1 Puff Inhaler) 2 puff INH TID [facility] Last Admin: 10/30/20 09:00 Dose: Not Given Documented by: Albuterol/Ipratropium (Ipratropium/Albuterol 3 Ml Ampul.Neb) 3 ml NEB Q4HP PRN PRN Reason: Shortness Of Breath Albuterol/Ipratropium (Ipratropium/Albuterol 3 Ml Ampul.Neb) 3 ml NEB Q4HRT [facility] Last Admin: 10/30/20 08:00 Dose: 3 ml Documented by: Chlorhexidine Gluconate (Chlorhexidine Gluconate 1 Ml Oral.Ermelinda) 15 ml SSP BID [facility] Last Admin: 10/30/20 09:11 Dose: 15 ml Documented by: Clonidine HCl (Clonidine Hcl 0.1 Mg Tablet) 0.1 mg PO Q8HP PRN PRN Reason: Hypertension or headache Dexamethasone (Dexamethasone 10 Mg/Ml Vial) 6 mg IV DAILY [facility] Last Admin: 10/30/20 09:10 Dose: 6 mg Documented by: Docusate Sodium (Docusate Sodium 100 Mg Capsule) 100 mg PO BID [facility] Last Admin: 10/30/20 09:00 Dose: Not Given Documented by: Enoxaparin Sodium (Enoxaparin 40 Mg/0.4 Ml Syringe) 40 mg SQ BID [facility] Last Admin: 10/30/20 09:09 Dose: 40 mg Documented by: Guaifenesin (Guaifenesin/Dextromethorphan Oral Ermelinda) 10 ml PO Q4HP PRN PRN Reason: Cough Last Admin: 10/29/20 18:22 Dose: 10 ml Documented by: Magnesium Sulfate (Magnesium Sulfate) 2 gm in 50 mls @ 50 mls/hr IV UD PRN PRN Reason: Magnesium </= 1.6 Potassium Chloride 40 meq/ (Dextrose) 520 mls @ 130 mls/hr IV UD PRN PRN Reason: Potassium < 3 REMDESIVIR 100 mg/ Sodium (Chloride) 250 mls @ 500 mls/hr IV Q24H [facility] Stop: 11/03/20 10:29 Last Admin: 10/30/20 10:37 Dose: 500 mls/hr Documented by: Lorazepam (Lorazepam 2 Mg/Ml Vial) 0.5 mg IV Q4HP PRN PRN Reason: ANXIETY/SEDATION Last Admin: 10/30/20 10:19 Dose: 0.5 mg Documented by: Losartan Potassium (Losartan 50 Mg Tablet) 50 mg PO QAM [facility] Last Admin: 10/30/20 09:10 Dose: 50 mg Documented by: Methocarbamol (Methocarbamol 750 Mg Tablet) 750 mg PO DAILYP PRN PRN Reason: Pain Montelukast Sodium (Montelukast 10 Mg Tablet) 10 mg PO QDAY [facility] Last Admin: 10/30/20 09:10 Dose: 10 mg Documented by: Ondansetron HCl (Ondansetron 4 Mg/2 Ml Vial) 4 mg IV Q4HP PRN PRN Reason: Nausea And Vomiting Pantoprazole Sodium (Pantoprazole 40 Mg Vial) [facility] Last Admin: 10/30/20 07:00 Dose: 40 mg Documented by: Polyethylene Glycol (Polyethylene Glycol 3350 17 Gm Packet) 17 gm PO DAILYP PRN PRN Reason: Constipation Potassium Chloride (Potassium Chloride 20 Meq Tablet) 40 meq PO UD PRN PRN Reason: Potssium is 3-3.5 Potassium Chloride (Potassium Chloride 20 Meq Tablet) 40 meq PO UD PRN PRN Reason: Potassium < 3 Prochlorperazine (Prochlorperazine 10 Mg/2 Ml Vial) 10 mg IV Q6HP PRN PRN Reason: Nausea And Vomiting Senna (Sennosides 1 Tablet) 2 tab PO DAILYP PRN PRN Reason: Constipation Simvastatin (Simvastatin 20 Mg Tablet) 20 mg PO HS [facility] Last Admin: 10/29/20 20:56 Dose: 20 mg Documented by: Sodium Chloride (0.9 % Sodium Chloride 10 Ml Syringe) 10 ml IV Q8 [facility] Last Admin: 10/30/20 05:25 Dose: 10 ml Documented by: Spironolactone (Spironolactone 25 Mg Tablet) 25 mg PO QDAY [facility] Last Admin: 10/30/20 09:10 Dose: 25 mg Documented by: Vancomycin HCl (Vancomycin Oral Ermelinda 1,000 Mg/10 Ml Bottle) 125 mg PO Q6 [facility]; Protocol Last Admin: 10/30/20 05:25 Dose: 125 mg Documented by: Zolpidem Tartrate (Zolpidem 5 Mg Tablet) 5 - 10 mg PO HSP PRN PRN Reason: Insomnia A/P Assessment and plan (1) Stage 1 acute kidney injury: Status: Acute (2) Pneumonia due to 2019-nCoV: Status: Acute (3) C. difficile colitis: Status: Acute (4) Hypoxemia: Status: Acute Narrative A/P Narrative: Assessment and Plans: 1. CoVID pneumonia with acute respiratory failure with hypoxia: Stays in inpatient PCU Isolation: airborne and contact ABG daily CPAP Remdesivir X10 days Dexamethasone Lovenox No Lasix due to acute kidney injury and now tachycardia cbc w/ auto diff in the morning to trend WBC Proning 16hr/day or as much as patient could tolerate Ativan PRN anxiety to help patient to tolerate BiPAP Repeat CXR Also order UA and urine culture to rule out UTI 2. C diff colitis: Vancomycin 125mg PO QID [id number] 3. Stage 1 acute kidney injury: Avoid nephrotoxic agents Saline lock CMP daily to trend kidney functions GI ppx: IV Protonix DVT ppx: Lovenox Code status: No chest compression; okay for intubation Prognosis: Extremely guarded Disposition: inpatient PCU Time Spent With Patient Time: Total time spent is greater than 50% in coordination of care (as documented) at patient's floor/unit and/or counseling patient:
[2020-10-30 13:35] LABS: Appearance,Urine HAZY (Clear); Bacteria,Urine MOD /hpf (0); Bilirubin,Urine Negative (Negative); Color,Urine STRAW; Culture Indicated,Urine No; Glucose,Urine (UA) Negative (Negative); Ketones,Urine Negative (Negative); Leukocyte Esterase,Urine 250 /ug (Negative); Nitrate,Urine POS (Negative); Protein,Urine Negative (Negative); Specific Gravity,Urine 1.006 (1.000-1.035); Urine RBC 85 /hpf (0-3); Urine Squamous Epithelial Cell 1 /hpf (0-4); Urine WBC 134 /hpf (0-4); Urobilinogen,Urine Negative
[2020-10-30] MEDS: guaiFENesin/DEXTROMETHORPHAN ORAL SOL PO PRN (14:00)
--- NOTE | 2020-10-30 15:13 | XRay Report ---
CLINICAL INFORMATION: covid pna, f/u study COMPARISON: 10/29/2020 FINDINGS: Cardiomediastinal silhouette and pulmonary vessels are normal. Moderate bilateral mid and lower lung infiltrates have increased in size and density compared to yesterday's study. No effusion IMPRESSION: Moderate bilateral mid and lower lung infiltrates progressing from yesterday Interpreted and Authenticated by: Andrew Bullock 10/30/20
[2020-10-30] MEDS: cefTRIAXone 1 GM VIAL IV SCH (15:45)
[2020-10-30] MEDS ORDERED: LORazepam 2 MG/ML VIAL IV PRN (18:29)
[2020-10-30] MEDS: SIMVASTATIN 20 MG TABLET PO SCH (20:59)
[2020-10-30] MEDS: HYDROcodone/APAP 10/325MG TABLET PO PRN (21:05)
[2020-10-31] MEDS: IPRATROPIUM/ALBUTEROL 3 ML AMPUL.NEB NEB SCH ×6 (03:01→23:00)
[2020-10-31] MEDS: 0.9 % SODIUM CHLORIDE 10 ML SYRINGE IV SCH ×4 (05:50→21:23)
[2020-10-31] MEDS: VANCOMYCIN ORAL SOL 1,000 MG/10 ML BOTTLE PO SCH ×3 (05:51→17:24)
[2020-10-31 07:02] LABS: Basophils # (Auto) 0.08 K/mcL (0.00-0.30); Basophils % (Auto) 0.7 % (0.0-2.0); Eosinophils # (Auto) 0.02 K/mcL (0.00-0.70); Eosinophils % (Auto) 0.2 % (0.0-7.0); Hematocrit 40.8 % (34.1-44.9); Hemoglobin 12.6 g/dL (11.2-15.7); Lymphocytes # (Auto) 0.47 K/mcL (1.50-4.80); Mean Cell Volume 103.8 fL (80.0-100.0); Mean Corpuscular HGB Conc 30.9 g/dL (31.0-36.0); Mean Platelet Volume 10.2 fL (7.4-10.4); Monocytes # (Auto) 0.31 K/mcL (0.10-0.90); Monocytes % (Auto) 2.6 % (1.0-12.0); Neutrophils % (Auto) 92.5 % (38.0-78.0); Platelet Count 359 K/mcL (140-440); RBC 3.93 M/mcL (3.59-5.38); Red Cell Distribution Width 14.6 % (11.5-14.5); WBC 11.7 K/mcL (4.5-11.0)
[2020-10-31] MEDS: LORazepam 2 MG/ML VIAL IV PRN ×3 (07:16→19:55)
[2020-10-31] MEDS: PANTOPRAZOLE 40 MG VIAL IV SCH (07:16)
[2020-10-31 07:38] LABS: ALT/SGPT 37 U/L (<40); AST/SGOT 43 U/L (<32); Albumin/Globulin Ratio 0.8 (1.0-2.3); Alkaline Phosphatase 80 U/L (39-117); Bilirubin,Total 0.4 mg/dL (0.1-1.0); Blood Urea Nitrogen 30 mg/dL (8-23); Calcium 8.7 mg/dL (8.6-10.4); Carbon Dioxide 22 mmol/L (22-30); Chloride 102 mmol/L (96-108); Globulin 3.7 gm/dL (2.2-3.7); Glomerular Filtration Rate 46; Glucose 112 mg/dL (70-105)
[2020-10-31] MEDS: guaiFENesin/DEXTROMETHORPHAN ORAL SOL PO PRN ×3 (07:45→19:57)
[2020-10-31] MEDS: HYDROcodone/APAP 10/325MG TABLET PO PRN (07:59)
[2020-10-31] MEDS: LOSARTAN 50 MG TABLET PO SCH (09:27)
[2020-10-31] MEDS: DEXAMETHASONE 10 MG/ML VIAL IV SCH (09:27)
[2020-10-31] MEDS: MONTELUKAST 10 MG TABLET PO SCH (09:27)
[2020-10-31] MEDS: cefTRIAXone 1 GM VIAL IV SCH (09:27)
[2020-10-31] MEDS: IPRATROPIUM/ALBUTEROL SULFATE 1 PUFF INHALER INH SCH ×3 (09:28→19:56)
[2020-10-31] MEDS: DOCUSATE SODIUM 100 MG CAPSULE PO SCH ×2 (09:29→19:56)
[2020-10-31] MEDS: CHLORHEXIDINE GLUCONATE 1 ML ORAL.SOL SSP SCH ×2 (09:30→19:56)
[2020-10-31] MEDS: ENOXAPARIN 40 MG/0.4 ML SYRINGE SQ SCH ×2 (09:38→19:55)
--- NOTE | 2020-10-31 10:12 | Internal Med Progress Note ---
SUBJECTIVE Subjective Patient information: Note initiated : 10/31/20 at 10:06 am Service Date, if different from initiated Date: [] Patient: Tammy Blevins a 70 y/o F admitted on 10/25/20 for Shortness of breath. Chief Complaint: [CoVID pneumonia] Interval history: History of present illness: Ms. Blevins is a 70 year old F Patient presents the ED with vague complaints of just feeling ill. She has a chronic cough since March and was told it is probably allergies but has not improved. The cough has not changed. She is also chronically short of breath but she says her shortness of breath has not changed either. The only that change recently that a week ago she started feeling ill and ill and think she could tell me after asking multiple questions was made that she just kind of weak and tired fatigued but no specifics. When you see her primary care provider. She came in last night because she just has not felt any better. Patient not vaccinated. In the ED on arrival she was low 70s oxygen. Chest x-ray with bilateral infiltrates. She had a leukopenia but a mild bandemia and low lymphocytes. She was originally put on 10 L oxygen mask but was able to be titrated down to 3.5 and maintained in the ED. Creatinine is 1.3 but do not know baseline. Mild transaminitis. INR was normal pt was on lisinopril but this was stopped because of chronic cough and she was switched to Losartan. Pt with diarrhea multiple episodes in ED. c. diff pending. 10/26 Patient C. difficile positive. States she does not feel any better than yes terday. Is on Vapotherm. Has cough and shortness of breath. And diarrhea. 10/27: No diarrhea overnight. Tolerating modified proning on her side. Been on Vapotherm 60L and 95%. Afebrile overnight. c/o slightly improving SOB. c/o nonproductive cough. Denies sputum production. Denies wheezing. Denies chest pain. Denies fever or chills or sweating. Denies abdominal pain. 10/28: No diarrhea overnight. Tolerating modified proning on her side. Been on BiPAP overnight. Afebrile overnight. c/o slightly worsening SOB. c/o nonproductive cough. Denies sputum production. Denies wheezing. Denies chest pain. Denies fever or chills or sweating. Denies abdominal pain. c/o anxiety with the BiPAP mask 10/29: No diarrhea overnight. Afebrile overnight. Tolerating modified proning on her side. Been on BiPAP overnight, currently FiO2 65%. c/o SOB. Denies cough, sputum production, or respiratory wheezing. Denies chest pain. Denies fever, chills, or sweating. Denies abdominal pain. 10/30: No diarrhea overnight. Afebrile overnight. Been on CPAP overnight. WBC 10.7-->12.7. Tachycardia with HR in the 100s bpm since overnight. c/o SOB. Denies cough, sputum production, or respiratory wheezing. Denies fever, chills, or sweating. 10/31: Fever with Tmax 38.5 overnight. Urine culture from 10/30: gram negative bacillus. No diarrhea overnight. Been on CPAP overnight. Been prone overnight. WBC 12.7-->11.7. c/o SOB, improving from yesterday subjectively. c/o nonproductive cough. Denies sputum production or wheezing. Denies fever, chills, or sweating. Constitutional Vitals: Vital Signs Temp Pulse Resp BP Pulse Ox 38.1 C H 104 H 26 H 118/70 94 10/31/20 09:28 10/31/20 09:34 10/31/20 09:34 10/31/20 09:01 10/31/20 09:34 Period Temp Pulse Resp BP Sys/Wilcox Pulse Ox Last 24 Hr 36.2 C-38.5 C 91-110 17-33 109-167/49-84 63-99 Intake and Output 10/30/20 10/31/20 10/31/20 21:59 05:59 13:59 Intake Total 270 100 220 Output Total 209 185 129 Balance 61 -85 91 Weight 121.517 kg Intake & Output: Intake & Output 10/30/20 10/31/20 10/31/20 21:59 05:59 13:59 Intake Total 270 100 220 Output Total 209 185 129 Balance 61 -85 91 Weight 121.517 kg Intake: Nourishment/Supplement quantity 220 (ml) Oral 50 100 220 Output: Urine Catheter Amount 188 185 129 Reinserted Beasley 15 Void Amount 20 # of times incontinent of urine 1 Other: Nourishment/Supplement name Ensure Urine Appearance Sediment Clear Clear Reinserted Beasley Sediment Uretheral (Beasley) Sediment Sediment Urine Color Straw Bright Yellow Bright Yellow Reinserted Beasley Bright Yellow Uretheral (Beasley) Bright Yellow Dark Yellow Urine Odor Normal Normal General appearance: cooperative and mild distress; no no acute distress Exam: Patient is lying on her right side Prone Head Head exam: Present atraumatic and normocephalic Eye Eye exam: Present EOMI and PERRL ENT ENT exam: Present mucous membranes moist, normal exam and normal external ear ex am Additional comments: CPAP in place Neck Neck exam: Present normal inspection; Absent lymphadenopathy, tenderness and thyromegaly Respiratory Respiratory exam: Present rhonchi; Absent accessory muscle use, respiratory distress and wheezes Cardiovascular Cardiovascular exam: Present normal rate and rhythm; Absent JVD GI/Abdominal GI/Abdominal exam: Present normal bowel sounds and soft; Absent organomegaly and tenderness Extremities Exam Extremities exam: Present full ROM, normal capillary refill and normal inspection; Absent tenderness Neurological Exam Neurological exam: Present alert, CN II-XII intact and oriented X3; Absent motor sensory deficit Psychiatric Psychiatric exam: Present normal affect and normal mood; Absent anxious and depressed Skin Skin exam: Present dry and intact OBJ DATA Labs CBC & Chem 7: 10/31/20 05:49 10/31/20 05:49 Labs: Abnormal Lab Results 10/31/20 10/31/20 10/30/20 05:49 05:49 12:34 WBC 11.7 H MCV 103.8 H MCHC 30.9 L RDW 14.6 H MPV Neut % (Auto) 92.5 H Lymph % (Auto) 4.0 L Lymph # (Auto) 0.47 L Absolute Neutrophils 10.84 H BUN 30 H Creatinine 1.2 H Glucose 112 H AST 43 H ALT Albumin 3.0 L Albumin/Globulin Ratio 0.8 L Urine Appearance Hazy A Urine Nitrate Pos A Ur Leukocyte Esterase 250 A Urine RBC 85 H Urine WBC 134 H Urine Bacteria Mod A 10/30/20 10/30/20 10/29/20 06:09 06:09 06:28 WBC 12.7 H MCV MCHC 30.6 L RDW MPV 10.7 H Neut % (Auto) 92.1 H Lymph % (Auto) 3.1 L Lymph # (Auto) 0.40 L Absolute Neutrophils 11.70 H BUN 33 H 37 H Creatinine 1.2 H 1.2 H Glucose 133 H 138 H AST 55 H 47 H ALT 43 H Albumin 3.1 L Albumin/Globulin Ratio 0.9 L 0.9 L Urine Appearance Urine Nitrate Ur Leukocyte Esterase Urine RBC Urine WBC Urine Bacteria 10/29/20 06:28 WBC MCV MCHC RDW MPV 10.7 H Neut % (Auto) 88.0 H Lymph % (Auto) 4.2 L Lymph # (Auto) 0.45 L Absolute Neutrophils 9.43 H BUN Creatinine Glucose AST ALT Albumin Albumin/Globulin Ratio Urine Appearance Urine Nitrate Ur Leukocyte Esterase Urine RBC Urine WBC Urine Bacteria Meds: Medications Acetaminophen (Acetaminophen 325 Mg Tablet) 650 mg PO Q6HP PRN PRN Reason: PAIN/FEVER > 101 Last Admin: 10/31/20 08:43 Dose: 325 mg Documented by: Acetaminophen/Butalbital/Caffeine (Butalb/Acetaminophen/Caffeine 1 Tablet) 1 - 2 tab PO Q6-8HP PRN PRN Reason: Migraine Headache Hydrocodone Bitart/Acetaminophen (Hydrocodone/Apap 10/325mg Tablet) 1 - 2 tab PO Q4HP PRN; Protocol PRN Reason: Pain Last Admin: 10/31/20 07:59 Dose: 1 tab Documented by: Albuterol/Ipratropium (Ipratropium/Albuterol Sulfate 1 Puff Inhaler) 2 puff INH TID [facility] Last Admin: 10/31/20 09:28 Dose: Not Given Documented by: Albuterol/Ipratropium (Ipratropium/Albuterol 3 Ml Ampul.Neb) 3 ml NEB Q4HP PRN PRN Reason: Shortness Of Breath Albuterol/Ipratropium (Ipratropium/Albuterol 3 Ml Ampul.Neb) 3 ml NEB Q4HRT [facility] Last Admin: 10/31/20 07:03 Dose: 3 ml Documented by: Ceftriaxone Sodium (Ceftriaxone 1 Gm Vial) 1 gm IV DAILY [facility]; Protocol Last Admin: 10/31/20 09:27 Dose: 1 gm Documented by: Chlorhexidine Gluconate (Chlorhexidine Gluconate 1 Ml Oral.Ermelinda) 15 ml SSP BID [facility] Last Admin: 10/31/20 09:30 Dose: 15 ml Documented by: Clonidine HCl (Clonidine Hcl 0.1 Mg Tablet) 0.1 mg PO Q8HP PRN PRN Reason: Hypertension or headache Dexamethasone (Dexamethasone 10 Mg/Ml Vial) 6 mg IV DAILY [facility] Last Admin: 10/31/20 09:27 Dose: 6 mg Documented by: Docusate Sodium (Docusate Sodium 100 Mg Capsule) 100 mg PO BID [facility] Last Admin: 10/31/20 09:29 Dose: Not Given Documented by: Enoxaparin Sodium (Enoxaparin 40 Mg/0.4 Ml Syringe) 40 mg SQ BID [facility] Last Admin: 10/31/20 09:38 Dose: 40 mg Documented by: Guaifenesin (Guaifenesin/Dextromethorphan Oral Ermelinda) 10 ml PO Q4HP PRN PRN Reason: Cough Last Admin: 10/31/20 07:45 Dose: 10 ml Documented by: Magnesium Sulfate (Magnesium Sulfate) 2 gm in 50 mls @ 50 mls/hr IV UD PRN PRN Reason: Magnesium </= 1.6 Potassium Chloride 40 meq/ (Dextrose) 520 mls @ 130 mls/hr IV UD PRN PRN Reason: Potassium < 3 REMDESIVIR 100 mg/ Sodium (Chloride) 250 mls @ 500 mls/hr IV Q24H [facility] Stop: 11/03/20 10:29 Last Infusion: 10/30/20 11:40 Dose: Infused Documented by: Lorazepam (Lorazepam 2 Mg/Ml Vial) 0.5 mg IV Q4HP PRN PRN Reason: ANXIETY/SEDATION Last Admin: 10/31/20 07:16 Dose: 0.5 mg Documented by: Lorazepam (Lorazepam 2 Mg/Ml Vial) 0.5 mg IV ONCE PRN PRN Reason: Anxiety Losartan Potassium (Losartan 50 Mg Tablet) 50 mg PO QAM [facility] Last Admin: 10/31/20 09:27 Dose: 50 mg Documented by: Methocarbamol (Methocarbamol 750 Mg Tablet) 750 mg PO DAILYP PRN PRN Reason: Pain Montelukast Sodium (Montelukast 10 Mg Tablet) 10 mg PO QDAY [facility] Last Admin: 10/31/20 09:27 Dose: 10 mg Documented by: Ondansetron HCl (Ondansetron 4 Mg/2 Ml Vial) 4 mg IV Q4HP PRN PRN Reason: Nausea And Vomiting Pantoprazole Sodium (Pantoprazole 40 Mg Vial) 40 mg IV QAMAC [facility] Last Admin: 10/31/20 07:16 Dose: 40 mg Documented by: Polyethylene Glycol (Polyethylene Glycol 3350 17 Gm Packet) 17 gm PO DAILYP PRN PRN Reason: Constipation Potassium Chloride (Potassium Chloride 20 Meq Tablet) 40 meq PO UD PRN PRN Reason: Potssium is 3-3.5 Potassium Chloride (Potassium Chloride 20 Meq Tablet) 40 meq PO UD PRN PRN Reason: Potassium < 3 Prochlorperazine (Prochlorperazine 10 Mg/2 Ml Vial) 10 mg IV Q6HP PRN PRN Reason: Nausea And Vomiting Senna (Sennosides 1 Tablet) 2 tab PO DAILYP PRN PRN Reason: Constipation Simvastatin (Simvastatin 20 Mg Tablet) 20 mg PO HS [facility] Last Admin: 10/30/20 20:59 Dose: 20 mg Documented by: Sodium Chloride (0.9 % Sodium Chloride 10 Ml Syringe) 10 ml IV Q8 [facility] Last Admin: 10/31/20 05:50 Dose: 10 ml Documented by: Spironolactone (Spironolactone 25 Mg Tablet) 25 mg PO QDAY [facility] Last Admin: 10/30/20 09:10 Dose: 25 mg Documented by: Vancomycin HCl (Vancomycin Oral Ermelinda 1,000 Mg/10 Ml Bottle) 125 mg PO Q6 [facility]; Protocol Last Admin: 10/31/20 05:51 Dose: 125 mg Documented by: Zolpidem Tartrate (Zolpidem 5 Mg Tablet) 5 - 10 mg PO HSP PRN PRN Reason: Insomnia A/P Assessment and plan (1) Stage 1 acute kidney injury: Status: Acute (2) Pneumonia due to 2019-nCoV: Status: Acute (3) C. difficile colitis: Status: Acute (4) Hypoxemia: Status: Acute (5) UTI (urinary tract infection): Status: Acute Narrative A/P Narrative: Assessment and Plans: 1. CoVID pneumonia with acute respiratory failure with hypoxia: Stays in inpatient PCU Isolation: airborne and contact ABG daily CPAP Remdesivir X10 days Dexamethasone Lovenox No Lasix due to acute kidney injury and now tachycardia cbc w/ auto diff in the morning to trend WBC Proning 16hr/day or as much as patient could tolerate Ativan PRN anxiety to help patient to tolerate BiPAP Repeat CXR at least every couple of days 2. C diff colitis: Vancomycin 125mg PO QID Q14ricj 3. Stage 1 acute kidney injury: Avoid nephrotoxic agents Saline lock CMP daily to trend kidney functions 4. UTI: Urine culture growing gram negative bacillus Blood culture to be collected Rocephin Tylenol PRN fever cbc w/ auto diff in the morning to trend WBC level GI ppx: IV Protonix DVT ppx: Lovenox Code status: No chest compression; okay for intubation Prognosis: Extremely guarded Disposition: inpatient PCU Time Spent With Patient Time: Total time spent is greater than 50% in coordination of care (as documented) at patient's floor/unit and/or counseling patient:
[2020-10-31] MEDS: REMDESIVIR 100 MG in 0.9 % SODIUM CHLORIDE 250 ML IV SCH (10:27)
[2020-10-31] MEDS ORDERED: SPIRONOLACTONE 25 MG TABLET PO PRN (10:43)
[2020-10-31] MEDS ORDERED: oxyCODONE/APAP 5/325MG TABLET PO PRN (10:45)
[2020-10-31] MEDS: SPIRONOLACTONE 25 MG TABLET PO SCH (12:24)
[2020-10-31] MEDS: SIMVASTATIN 20 MG TABLET PO SCH (19:56)
[2020-10-31] MEDS ORDERED: KETOROLAC 30 MG/ML VIAL IV PRN (22:02)
[2020-10-31] MEDS ORDERED: morphine 4 MG/ML VIAL IV PRN (22:02)
[2020-10-31] MEDS ORDERED: ACETAMINOPHEN 1,000 MG/100 ML BAG IV PRN (22:04)
[2020-10-31] MEDS ORDERED: KETOROLAC 15 MG/ML VIAL ONE (22:22)
[2020-10-31] MEDS ORDERED: ACETAMINOPHEN 1,000 MG/100 ML BAG IV ONE (22:24)
[2020-11-01] MEDS: VANCOMYCIN ORAL SOL 1,000 MG/10 ML BOTTLE PO SCH ×3 (02:00→15:59)
[2020-11-01] MEDS: LORazepam 2 MG/ML VIAL IV PRN ×3 (02:17→12:30)
[2020-11-01] MEDS: IPRATROPIUM/ALBUTEROL 3 ML AMPUL.NEB NEB SCH ×4 (04:39→15:20)
[2020-11-01] MEDS: 0.9 % SODIUM CHLORIDE 10 ML SYRINGE IV SCH ×2 (05:28→13:27)
[2020-11-01 07:25] LABS: Basophils # (Auto) 0.04 K/mcL (0.00-0.30); Basophils % (Auto) 0.3 % (0.0-2.0); Eosinophils # (Auto) 0.04 K/mcL (0.00-0.70); Eosinophils % (Auto) 0.3 % (0.0-7.0); Hematocrit 36.3 % (34.1-44.9); Hemoglobin 11.1 g/dL (11.2-15.7); Lymphocytes # (Auto) 0.36 K/mcL (1.50-4.80); Lymphocytes % (Auto) 2.7 % (15.5-49.0); Mean Cell Volume 98.9 fL (80.0-100.0); Mean Corpuscular HGB Conc 30.6 g/dL (31.0-36.0); Mean Platelet Volume 10.7 fL (7.4-10.4); Monocytes # (Auto) 0.26 K/mcL (0.10-0.90); Neutrophils % (Auto) 94.7 % (38.0-78.0); Platelet Count 383 K/mcL (140-440); RBC 3.67 M/mcL (3.59-5.38); Red Cell Distribution Width 14.6 % (11.5-14.5)
[2020-11-01] MEDS: IPRATROPIUM/ALBUTEROL SULFATE 1 PUFF INHALER INH SCH ×2 (07:30→13:31)
[2020-11-01] MEDS: DOCUSATE SODIUM 100 MG CAPSULE PO SCH (07:35)
[2020-11-01 08:13] LABS: ALT/SGPT 29 U/L (<40); AST/SGOT 36 U/L (<32); Albumin 2.6 gm/dL (3.2-5.2); Albumin/Globulin Ratio 0.7 (1.0-2.3); Alkaline Phosphatase 75 U/L (39-117); Bilirubin,Total 0.3 mg/dL (0.1-1.0); Blood Urea Nitrogen 35 mg/dL (8-23); Calcium 8.6 mg/dL (8.6-10.4); Carbon Dioxide 21 mmol/L (22-30); Chloride 99 mmol/L (96-108); Globulin 3.8 gm/dL (2.2-3.7); Glomerular Filtration Rate 35; Glucose 120 mg/dL (70-105)
[2020-11-01] MEDS: PANTOPRAZOLE 40 MG VIAL IV SCH (08:15)
[2020-11-01 08:16] LABS: WBC 13.1 K/mcL (4.5-11.0)
--- NOTE | 2020-11-01 09:21 | Internal Med Progress Note ---
SUBJECTIVE Subjective Patient information: Note initiated : 11/01/20 at 9:16 am Service Date, if different from initiated Date: [] Patient: Tammy Blevins a 70 y/o F admitted on 10/25/20 for Shortness of breath. Chief Complaint: [CoVID pneumonia] Interval history: History of present illness: Ms. Blevins is a 70 year old F Patient presents the ED with vague complaints of just feeling ill. She has a chronic cough since March and was told it is probably allergies but has not improved. The cough has not changed. She is also chronically short of breath but she says her shortness of breath has not changed either. The only that change recently that a week ago she started feeling ill and ill and think she could tell me after asking multiple questions was made that she just kind of weak and tired fatigued but no specifics. When you see her primary care provider. She came in last night because she just has not felt any better. Patient not vaccinated. In the ED on arrival she was low 70s oxygen. Chest x-ray with bilateral infiltrates. She had a leukopenia but a mild bandemia and low lymphocytes. She was originally put on 10 L oxygen mask but was able to be titrated down to 3.5 and maintained in the ED. Creatinine is 1.3 but do not know baseline. Mild transaminitis. INR was normal pt was on lisinopril but this was stopped because of chronic cough and she was switched to Losartan. Pt with diarrhea multiple episodes in ED. c. diff pending. 10/26 Patient C. difficile positive. States she does not feel any better than yest erday. Is on Vapotherm. Has cough and shortness of breath. And diarrhea. 10/27: No diarrhea overnight. Tolerating modified proning on her side. Been on Vapotherm 60L and 95%. Afebrile overnight. c/o slightly improving SOB. c/o nonproductive cough. Denies sputum production. Denies wheezing. Denies chest pain. Denies fever or chills or sweating. Denies abdominal pain. 10/28: No diarrhea overnight. Tolerating modified proning on her side. Been on BiPAP overnight. Afebrile overnight. c/o slightly worsening SOB. c/o nonproductive cough. Denies sputum production. Denies wheezing. Denies chest pain. Denies fever or chills or sweating. Denies abdominal pain. c/o anxiety with the BiPAP mask 10/29: No diarrhea overnight. Afebrile overnight. Tolerating modified proning on her side. Been on BiPAP overnight, currently FiO2 65%. c/o SOB. Denies cough, sputum production, or respiratory wheezing. Denies chest pain. Denies fever, chills, or sweating. Denies abdominal pain. 10/30: No diarrhea overnight. Afebrile overnight. Been on CPAP overnight. WBC 10.7-->12.7. Tachycardia with HR in the 100s bpm since overnight. c/o SOB. Denies cough, sputum production, or respiratory wheezing. Denies fever, chills, or sweating. 10/31: Fever with Tmax 38.5 overnight. Urine culture from 10/30: gram negative bacillus. No diarrhea overnight. Been on CPAP overnight. Been prone overnight. WBC 12.7-->11.7. c/o SOB, improving from yesterday subjectively. c/o nonproductive cough. Denies sputum production or wheezing. Denies fever, chills, or sweating. 11/01: Patient took off her CPAP mask last night and oxygen saturation dropped down to 30s% and took a long while to recover. Currently oxygen saturation is in the high 80s% with CPAP pressure@14, FiO2 100%. Afebrile. No diarrhea overnight. Been lying on her right side. Denies SOB. c/o nonproductive cough. Denies sputum production or wheezing. Denies fever, chills, or sweating. Constitutional Vitals: Vital Signs Temp Pulse Resp BP Pulse Ox 37.2 C 107 H 27 H 137/63 88 L 11/01/20 09:01 11/01/20 09:01 11/01/20 09:01 11/01/20 09:01 11/01/20 09:01 Period Temp Pulse Resp BP Sys/Wilcox Pulse Ox Last 24 Hr 36.8 C-38.3 C 84-107 101-160/57-104 84-99 Intake and Output 10/31/20 11/01/20 11/01/20 21:59 05:59 13:59 Intake Total 320 100 Output Total 337 385 290 Balance -17 -285 -290 Weight 120.701 kg Intake & Output: Intake & Output 10/31/20 11/01/20 11/01/20 21:59 05:59 13:59 Intake Total 320 100 Output Total 337 385 290 Balance -17 -285 -290 Weight 120.701 kg Intake: Nourishment/Supplement quantity 120 (ml) IV 100 Oral 200 Output: Urine Catheter Amount 292 385 290 Void Amount 45 Other: Nourishment/Supplement name Ensure Clear Urine Appearance Clear Clear Clear Reinserted Beasley Clear Urine Color Dark Yellow Light Shreya Dark Yellow Reinserted Beasley Dark Yellow Urine Odor Normal Stool Size Moderate Large Moderate Stool Color Brown Brown Brown Green Stool Consistency Liquid Liquid Loose Loose Loose # Bowel Movements 1 1 # of times incontinent of 1 4 Bowels General appearance: cooperative and no acute distress Exam: Patient is lying on her right side Prone Head Head exam: Present atraumatic and normocephalic Eye Eye exam: Present EOMI and PERRL ENT ENT exam: Present mucous membranes moist, normal exam and normal external ear exam Additional comments: CPAP in place Neck Neck exam: Present normal inspection; Absent lymphadenopathy, tenderness and thyromegaly Respiratory Respiratory exam: Present rhonchi; Absent accessory muscle use, respiratory distress and wheezes Cardiovascular Cardiovascular exam: Present normal rate and rhythm; Absent JVD GI/Abdominal GI/Abdominal exam: Present normal bowel sounds and soft; Absent organomegaly and tenderness Extremities Exam Extremities exam: Present full ROM, normal capillary refill and normal inspection; Absent tenderness Neurological Exam Neurological exam: Present alert, CN II-XII intact and oriented X3; Absent motor sensory deficit Psychiatric Psychiatric exam: Present normal affect and normal mood; Absent anxious and depressed Skin Skin exam: Present dry and intact OBJ DATA Labs CBC & Chem 7: 11/01/20 05:55 11/01/20 05:54 Labs: Abnormal Lab Results 11/01/20 11/01/20 10/31/20 05:55 05:54 05:49 WBC 13.1 H Hgb 11.1 L MCV MCHC 30.6 L RDW 14.6 H MPV 10.7 H Neut % (Auto) 94.7 H Lymph % (Auto) 2.7 L Lymph # (Auto) 0.36 L Absolute Neutrophils 12.40 H Carbon Dioxide 21 L BUN 35 H 30 H Creatinine 1.5 H 1.2 H Glucose 120 H 112 H AST 36 H 43 H ALT Albumin 2.6 L 3.0 L Globulin 3.8 H Albumin/Globulin Ratio 0.7 L 0.8 L Urine Appearance Urine Nitrate Ur Leukocyte Esterase Urine RBC Urine WBC Urine Bacteria 10/31/20 10/30/20 10/30/20 05:49 12:34 06:09 WBC 11.7 H Hgb MCV 103.8 H MCHC 30.9 L RDW 14.6 H MPV Neut % (Auto) 92.5 H Lymph % (Auto) 4.0 L Lymph # (Auto) 0.47 L Absolute Neutrophils 10.84 H Carbon Dioxide BUN 33 H Creatinine 1.2 H Glucose 133 H AST 55 H ALT 43 H Albumin Globulin Albumin/Globulin Ratio 0.9 L Urine Appearance Hazy A Urine Nitrate Pos A Ur Leukocyte Esterase 250 A Urine RBC 85 H Urine WBC 134 H Urine Bacteria Mod A 10/30/20 06:09 WBC 12.7 H Hgb MCV MCHC 30.6 L RDW MPV 10.7 H Neut % (Auto) 92.1 H Lymph % (Auto) 3.1 L Lymph # (Auto) 0.40 L Absolute Neutrophils 11.70 H Carbon Dioxide BUN Creatinine Glucose AST ALT Albumin Globulin Albumin/Globulin Ratio Urine Appearance Urine Nitrate Ur Leukocyte Esterase Urine RBC Urine WBC Urine Bacteria Meds: Medications Acetaminophen (Acetaminophen 325 Mg Tablet) 650 mg PO Q6HP PRN PRN Reason: PAIN/FEVER > 101 Last Admin: 10/31/20 08:43 Dose: 325 mg Documented by: Acetaminophen/Butalbital/Caffeine (Butalb/Acetaminophen/Caffeine 1 Tablet) 1 - 2 tab PO Q6-8HP PRN PRN Reason: Migraine Headache Albuterol/Ipratropium (Ipratropium/Albuterol Sulfate 1 Puff Inhaler) 2 puff INH TID [facility] Last Admin: 11/01/20 07:30 Dose: Not Given Documented by: Albuterol/Ipratropium (Ipratropium/Albuterol 3 Ml Ampul.Neb) 3 ml NEB Q4HP PRN PRN Reason: Shortness Of Breath Albuterol/Ipratropium (Ipratropium/Albuterol 3 Ml Ampul.Neb) 3 ml NEB Q4HRT [facility] Last Admin: 11/01/20 07:27 Dose: 3 ml Documented by: Ceftriaxone Sodium (Ceftriaxone 1 Gm Vial) 1 gm IV DAILY [facility]; Protocol Last Admin: 10/31/20 09:27 Dose: 1 gm Documented by: Chlorhexidine Gluconate (Chlorhexidine Gluconate 1 Ml Oral.Ermelinda) 15 ml SSP BID [facility] Last Admin: 10/31/20 19:56 Dose: 15 ml Documented by: Clonidine HCl (Clonidine Hcl 0.1 Mg Tablet) 0.1 mg PO Q8HP PRN PRN Reason: Hypertension or headache Dexamethasone (Dexamethasone 10 Mg/Ml Vial) 6 mg IV DAILY [facility] Last Admin: 10/31/20 09:27 Dose: 6 mg Documented by: Docusate Sodium (Docusate Sodium 100 Mg Capsule) 100 mg PO BID [facility] Last Admin: 11/01/20 07:35 Dose: Not Given Documented by: Enoxaparin Sodium (Enoxaparin 40 Mg/0.4 Ml Syringe) 40 mg SQ BID [facility] Last Admin: 10/31/20 19:55 Dose: 40 mg Documented by: Guaifenesin (Guaifenesin/Dextromethorphan Oral Ermelinda) 10 ml PO Q4HP PRN PRN Reason: Cough Last Admin: 10/31/20 19:57 Dose: 10 ml Documented by: Magnesium Sulfate (Magnesium Sulfate) 2 gm in 50 mls @ 50 mls/hr IV UD PRN PRN Reason: Magnesium </= 1.6 Potassium Chloride 40 meq/ (Dextrose) 520 mls @ 130 mls/hr IV UD PRN PRN Reason: Potassium < 3 REMDESIVIR 100 mg/ Sodium (Chloride) 250 mls @ 500 mls/hr IV Q24H [facility] Stop: 11/03/20 10:29 Last Infusion: 10/31/20 11:10 Dose: Infused Documented by: Acetaminophen (Ofirmev) 1,000 mg in 100 mls @ 200 mls/hr IV Q6HP PRN; Protocol PRN Reason: PAIN/FEVER > 101 Last Infusion: 11/01/20 02:01 Dose: Infused Documented by: Ketorolac Tromethamine (Ketorolac 30 Mg/Ml Vial) 30 mg IV Q6HP PRN PRN Reason: Per Pain Protocol Stop: 11/02/20 22:02 Last Admin: 10/31/20 22:27 Dose: 30 mg Documented by: Lorazepam (Lorazepam 2 Mg/Ml Vial) 0.5 mg IV Q4HP PRN PRN Reason: ANXIETY/SEDATION Last Admin: 11/01/20 08:32 Dose: 0.5 mg Documented by: Lorazepam (Lorazepam 2 Mg/Ml Vial) 0.5 mg IV ONCE PRN PRN Reason: Anxiety Losartan Potassium (Losartan 50 Mg Tablet) [facility] [place] Last Admin: 10/31/20 09:27 Dose: 50 mg Documented by: Methocarbamol (Methocarbamol 750 Mg Tablet) 750 mg PO DAILYP PRN PRN Reason: Pain Last Admin: 10/31/20 19:56 Dose: 750 mg Documented by: Montelukast Sodium (Montelukast 10 Mg Tablet) 10 mg PO QDAY [facility] Last Admin: 10/31/20 09:27 Dose: 10 mg Documented by: Morphine Sulfate (Morphine 4 Mg/Ml Vial) 4 mg IV Q4HP PRN; Protocol PRN Reason: Per Pain Protocol Ondansetron HCl (Ondansetron 4 Mg/2 Ml Vial) 4 mg IV Q4HP PRN PRN Reason: Nausea And Vomiting Pantoprazole Sodium ([facility]antoprazole 40 Mg Vial) [facility] Last Admin: 11/01/20 08:15 Dose: 40 mg Documented by: Polyethylene Glycol (Polyethylene Glycol 3350 17 Gm Packet) 17 gm PO DAILYP PRN PRN Reason: Constipation Potassium Chloride (Potassium Chloride 20 Meq Tablet) 40 meq PO UD PRN PRN Reason: Potssium is 3-3.5 Potassium Chloride (Potassium Chloride 20 Meq Tablet) 40 meq PO UD PRN PRN Reason: Potassium < 3 Prochlorperazine (Prochlorperazine 10 Mg/2 Ml Vial) 10 mg IV Q6HP PRN PRN Reason: Nausea And Vomiting Senna (Sennosides 1 Tablet) 2 tab PO DAILYP PRN PRN Reason: Constipation Simvastatin (Simvastatin 20 Mg Tablet) 20 mg PO HS [facility] Last Admin: 10/31/20 19:56 Dose: 20 mg Documented by: Sodium Chloride (0.9 % Sodium Chloride 10 Ml Syringe) 10 ml IV Q8 [facility] Last Admin: 11/01/20 05:28 Dose: 10 ml Documented by: Spironolactone (Spironolactone 25 Mg Tablet) 25 mg PO DAILYP PRN PRN Reason: Edema Vancomycin HCl (Vancomycin Oral Ermelinda 1,000 Mg/10 Ml Bottle) 125 mg PO Q6 [facility]; Protocol Last Admin: 11/01/20 05:28 Dose: Not Given Documented by: Zolpidem Tartrate (Zolpidem 5 Mg Tablet) 5 - 10 mg PO HSP PRN PRN Reason: Insomnia A/P Assessment and plan (1) Stage 1 acute kidney injury: Status: Acute (2) Pneumonia due to 2019-nCoV: Status: Acute (3) C. difficile colitis: Status: Acute (4) Hypoxemia: Status: Acute (5) UTI (urinary tract infection): Status: Acute Narrative A/P Narrative: Assessment and Plans: 1. CoVID pneumonia with acute respiratory failure with hypoxia: Stays in inpatient ICU Isolation: airborne and contact ABG daily CPAP Remdesivir X10 days Dexamethasone Lovenox No Lasix due to acute kidney injury and now tachycardia cbc w/ auto diff in the morning to trend WBC Proning 16hr/day or as much as patient could tolerate Ativan PRN anxiety to help patient to tolerate CPAP Repeat CXR at least every couple of days Talk to patient and family to clarify code status since patient is getting very close to the point to be needing to be intubated and on ventilator 2. C diff colitis: Vancomycin 125mg PO QID [id number] 3. Stage 1 acute kidney injury: Avoid nephrotoxic agents Saline lock CMP daily to trend kidney functions 4. UTI: Urine culture growing gram negative bacillus Blood culture, no growth to date Rocephin Tylenol PRN fever cbc w/ auto diff in the morning to trend WBC level GI ppx: IV Protonix DVT ppx: Lovenox Code status: No chest compression; okay for intubation; Talk to patient and family to clarify code status since patient is getting very close to the point to be needing to be intubated and on ventilator Prognosis: Extremely guarded Disposition: inpatient ICU Critical Care Time: 1hr Time Spent With Patient Time: Total time spent is greater than 50% in coordination of care (as documented) at patient's floor/unit and/or counseling patient:
[2020-11-01] MEDS: ENOXAPARIN 40 MG/0.4 ML SYRINGE SQ SCH (09:34)
[2020-11-01] MEDS: cefTRIAXone 1 GM VIAL IV SCH (09:34)
[2020-11-01] MEDS: DEXAMETHASONE 10 MG/ML VIAL IV SCH (09:34)
[2020-11-01] MEDS: REMDESIVIR 100 MG in 0.9 % SODIUM CHLORIDE 250 ML IV SCH (09:51)
[2020-11-01] MEDS: LOSARTAN 50 MG TABLET PO SCH (09:58)
[2020-11-01] MEDS: MONTELUKAST 10 MG TABLET PO SCH (09:59)
[2020-11-01] MEDS: CHLORHEXIDINE GLUCONATE 1 ML ORAL.SOL SSP SCH (09:59)
[2020-11-01] MEDS ORDERED: PROPOFOL 200 MG/20 ML VIAL IV ONE (10:55)
[2020-11-01] MEDS ORDERED: SUCCINYLCHOLINE 20 MG/ML ML IV ONE (10:55)
[2020-11-01] MEDS ORDERED: KETAMINE 50 MG/ML Syringe (ANEST) IV ONE (10:55)
[2020-11-01] MEDS ORDERED: MIDAZOLAM 5 MG/5 ML VIAL ONE (10:55)
[2020-11-01] MEDS ORDERED: fentaNYL 100 MCG/2 ML VIAL IV ONE (10:55)
[2020-11-01] MEDS ORDERED: PROPOFOL 1,000 MG in PREMIX 1 BAG IV ONE (11:00)
[2020-11-01] MEDS ORDERED: fentaNYL 2,500 MCG in 0.9 % SODIUM CHLORIDE 200 ML IV SCH (11:00)
--- NOTE | 2020-11-01 12:03 | General Surgery Progress Note ---
Surgical - Auxillary Note - Subjective Patient Information: Note initiated : 11/01/20 at 12:00 pm Service Date, if different from initiated Date: [] Patient: Tammy Blevins 70 y/o F admitted on 10/25/20 for Shortness of breath. Chief Complaint: [Called to ICU for respiratory failure for intubation and central line placement. Intubated after speaking with and educating patient. Central line placement unsuccessful after 2 attempts. Both the right and the left IJ was accessed with ease via the finder needle using ultrasound. Failure was in attempting to pass the guidewire safely after skin knick and intruducer dilation. Procedure aborted, bedside RN, hospitalist, and greenhouse grower notified. ]
--- NOTE | 2020-11-01 12:06 | Procedure Note ---
Procedures - Central Line Placement Right IJ Date of Procedure: 11/01/20 Time out performed: Yes Patient placed on monitor/pulse ox: Yes prep: mask, sterile gown, sterile gloves, cap, other (N95, covid-19 precautions) Central line prep: 2% Chlorhexidine scrub Ultrasound used for placement: Yes Central line lumen inserted: quad, 16 cm Complications: other (Procedure aborted after 2 attempts of guidewire unable to be successfully passed, see auxillary note. )
--- NOTE | 2020-11-01 12:49 | XRay Report ---
HISTORY: Intubated, COVID pneumonia FINDINGS: Severe infiltrates are present throughout both lungs with the greatest consolidation in the right lower thorax. The right lower lobe infiltrate has become worse since 10/30/20. There is no pneumothorax. Endotracheal tube has been inserted. The tip lies 4 cm above the huan. There is no widening of mediastinum. Nasogastric tube passes through the esophagus into the stomach. IMPRESSION: Well-positioned endotracheal tube. Worsening pneumonia ICU nurse was called with the report Interpreted and Authenticated by: Migel Henderson 11/01/20
--- NOTE | 2020-11-01 12:51 | XRay Report ---
HISTORY: Nasogastric tube insertion FINDINGS: Nasogastric tube has been inserted. Catheter makes a loop within the body of the stomach with the tip pointing towards the spleen. Stomach is decompressed. Normal volume of air seen in large and small intestine. IMPRESSION: well-positioned nasogastric gastric tube in the stomach ICU nurse was called with the report Interpreted and Authenticated by: Migel Henderson 11/01/20
[2020-11-01] MEDS ORDERED: PROPOFOL 100 ML IV ONE (13:16)
[2020-11-01] MEDS ORDERED: PROPOFOL 1,000 MG in PREMIX 1 BAG IV SCH (13:30)
[2020-11-01] MEDS ORDERED: MIDAZOLAM HCL 50 MG in 0.9 % SODIUM CHLORIDE 90 ML IV SCH (13:45)
[2020-11-01] MEDS ORDERED: morphine 4 MG/ML VIAL NEB PRN (15:50)
[2020-11-01] MEDS ORDERED: LORazepam 2 MG/ML VIAL IV PRN (15:52)
[2020-11-01] MEDS ORDERED: ACETAMINOPHEN 650 MG/65 ML BAG IV PRN (15:53)
[2020-11-01] MEDS ORDERED: morphine 4 MG/ML VIAL IV PRN (15:55)
--- NOTE | 2020-11-01 17:36 | Death Note ---
Discharge Sum: Prov Provider Patient information: Note initiated : 11/01/20 at 5:35 pm Service Date, if different from initiated Date: [] Patient: Tammy Blevins 70 y/o F admitted on 10/25/20 for Shortness of breath. Chief Complaint: [CoVID pneumonia] Primary care physician: Negra Cabrera Consults: 10/24/20 Consult to Physician [CONS] Stat Comment: Consulting Provider: Trae Morales Reason For Exam: Physician to Consult Discharge Sum: Diag Contributing Factors (1) Stage 1 acute kidney injury: (2) Pneumonia due to 2019-nCoV: (3) C. difficile colitis: (4) Hypoxemia: (5) UTI (urinary tract infection): Discharge Sum: Summary Date and Time Date of admission: 10/25/20 11:05 Additional Data Attending physician: Parth Obando
[2020-11-01] MEDS ORDERED: 0.9 % SODIUM CHLORIDE 10 ML SYRINGE IV SCH (22:00)
--- NOTE | 2020-11-07 07:46 | EKG ---
[facility] Test Date: 2020-10-24 Pat Name: Tammy Blevins Department: ED Room: Gender: Female Snack Bar Cook: DORA : 1950 Requested By: Faisal Ennis Order Number: [id number] Reading MD: Fernando Ragsdale Measurements Intervals [place] Rate: 95 P: 31 [place]: 136 QRS: 19 QRSD: 78 T: 72 QT: 332 QTc: 418 Interpretive Statements SINUS RHYTHM Electronically Signed On 11-07-2020 7:45:46 PDT by Fernando Ragsdale /[email or web address]/[id number]
--- NOTE | 2020-11-09 10:57 | EKG ---
[facility] Test Date: 2020-10-28 Pat Name: Tammy Blevins Department: ICU Room: 120B Gender: Female Corporate Sales Representative: : 1950 Requested By: Parth Obando Order Number: [id number] Reading MD: Fernando Ragsdale Measurements Intervals [place] Rate: 89 P: 49 SC: 156 QRS: 7 QRSD: 76 T: 44 QT: 348 QTc: 424 Interpretive Statements SINUS RHYTHM Not significantly changed compared to prior Electronically Signed On 11-09-2020 10:56:43 PDT by Fernando Ragsdale /[email or web address]/[email or web address]/[id number]
== END 2020-11-01 19:35 | disposition expired | DRG 208 ==
LOC: ED 17:44 → MEDSUR 10-25 11:05 → ICU 10-26 01:39
PROVIDERS: ADMIT Internal Medicine; ATTEND Internal Medicine